=== PATIENT | male | born 1970 | race Caucasian/White ===

== ENCOUNTER 2017-10-16 16:17 | Inpatient (IN) ==
[2017-10-16] MEDS ORDERED: 0.9 % Sodium Chloride 1,000 ML IVC ONE (16:44)
--- NOTE | 2017-10-16 16:46 | Emergency Department Note ---
Disposition Clinical Impression: Abdominal pain, Hyperammonemia, Thrombocytopenia, Abnormal urinalysis, Elevated INR, History of hepatitis C, Liver failure Disposition: Admitted As Inpatient Referrals: NONE,PCP [Primary Care Provider] - Forms: ED Satisfaction Letter, Work/School Release General Adult HPI - General Chief complaint: ED Abdominal Pain Stated complaint: Enlarged gallbladder/spleen Time Seen by Provider: 10/16/17 16:36 Source: patient Limitations: no limitations - History of Present Illness HPI Narrative: 47-year-old male reports emergency department complaining of abdominal pain. The patient states he recently had pneumonia and had a follw up CT scan of the chest yesterday which reportedly was reviewed by his patient care coordinator, per the patient there was suggestion of a hepatic and/or splenic disease. The patient thinks he may have a gallbladder problem. He describes abdominal pain in the upper abdomen. The patient has had recurrent small amounts of blood in the stool, and occasional hematemesis but no hematemesis over the last few days. Minimal bright red blood per rectum this morning with formed stool/nonbloody otherwise. The patient denies any vomiting. No diarrhea. He states he has a history of hepatitis C. He has never had abdominal surgery or cirrhosis. The patient denies any chest pain he has had a cough but no glenn shortness breath. The patient's had no fever. There is no history of diabetes but the patient reports he "eats a lot of sugar" there is no history of leg swelling or pain or syncope. No coughing up blood. There is no history of anticoagulant therapy. Pain Scale: 6 - Related Data Home Medications Medication Instructions Recorded Confirmed Buprenorphine HCl [Subutex] 8 mg SL BID 10/26/16 10/16/17 Allergies Allergy/AdvReac Type Severity Reaction Status Date / Time No Known Allergies Allergy Verified 06/26/15 16:04 All systems ED: reviewed and negative except as stated. Past Medical History - Past Medical History Medical history: Reports: hepatitis, hypertension, other Psychiatric history: Reports: no psych history - Social History Smoking Status: Current every day smoker Smokeless Tobacco Status: No Alcohol use: Reports: none Drug use: Reports: none, other Physical Exam - General Limitations: no limitations General appearance: alert, in no apparent distress - Head Head exam: atraumatic, normocephalic, normal inspection - Eye Eye exam: Present: normal appearance, PERRL, EOMI. Absent: scleral icterus, conjunctival injection, miosis, mydriasis - ENT ENT exam: normal exam, normal oropharynx, mucous membranes moist - Neck Neck exam: Present: normal inspection, full ROM, trachea midline. Absent: tenderness - Chest Chest inspection: Present: symmetric chest wall rise. Absent: tenderness - Respiratory Respiratory exam: Present: normal lung sounds bilaterally. Absent: respiratory distress, accessory muscle use, prolonged expiratory phase - Cardiovascular Cardiovascular exam: Present: regular rate, normal rhythm, normal heart sounds - Abdominal Exam Abdominal exam: Present: soft, tenderness, normal bowel sounds, ascites. Absent : distention, guarding, rebound, rigidity, Rovsing's sign, tenderness at McBurney's Point, pulsatile mass Abdominal tenderness: Present: RUQ, LUQ, epigastrium, moderate - Extremities Exam Extremities exam: Present: normal inspection, full ROM, normal capillary refill. Absent: tenderness, pedal edema, joint swelling, calf tenderness - Expanded Lower Extremity Exam Neurovascular/Tendon exam: Present: normal capillary refill. Absent: motor deficit, sensory deficit, tendon deficit, extremity cold to touch, pallor - Back Exam Back exam: Present: normal inspection, full ROM. Absent: tenderness, CVA tenderness (R), CVA tenderness (L), vertebral tenderness - Neurological Exam Neurological exam: Present: alert, oriented X3, CN II-XII intact. Absent: motor sensory deficit - Psychiatric Psychiatric exam: Present: normal affect, normal mood - Skin Skin exam: Present: warm, dry, intact, normal color. Absent: rash, cyanosis, diaphoresis, erythema, mottled Course Vital Signs Temperature 98.0 F 10/16/17 16:28 Pulse Rate 83 10/16/17 16:28 Respiratory Rate 18 10/16/17 16:28 Blood Pressure 144/78 10/16/17 16:28 O2 Sat by Pulse Oximetry 97 10/16/17 16:28 Temperature 98.0 F 10/16/17 16:28 Pulse Rate 83 10/16/17 16:28 Respiratory Rate 18 10/16/17 16:28 Blood Pressure 144/78 10/16/17 16:28 O2 Sat by Pulse Oximetry 97 10/16/17 16:28 Oxygen Delivery Oxygen Delivery Room Air Medical Decision Making - MDM Narrative Medical decision making narrative: The patient has what appears to be ascites and splenomegaly with abnormal liver function tests suggestive of liver failure/cirrhosis. He does have a history of hepatitis C. Notably he has INR is 1.7 and his ammonia levels were over 100. Lactulose was ordered. CT scan revealed changes suggesting cholecystitis , the patient does not seem to have right upper abdominal pain, a right upper quadrant ultrasound was ordered and shows similar changes, , I discussed the case with Dr. Islas, we both feel the patient is more likely to have cirrhosis based on his abnormal liver function tests, ascites, splenomegaly, thrombocytopenia and history of hepatitis C versus acute cholecystitis. The patient was given Zosyn in the ED to cover abnormal urinalysis as well as intra- abdominal pathology. The patient is being admitted to the medical service, I discussed the case with the hospitalist on-call who has accepted the patient to their care. Surgery will act as transformation consultant and orders have been placed for consultation. The patient is agreeable to admission and is currently stable pending admission. - Lab Data Lab results reviewed: Yes I reviewed the patient's lab results. Result diagrams: 10/16/17 16:59 10/16/17 17:48 Lab Results 10/16/17 10/16/17 10/16/17 Range/Units 16:59 16:59 17:28 WBC 5.1 (4.3-11.1) K/mcL RBC 4.38 (4.19-5.50) M/mcL Hgb 13.4 (12.9-16.9) g/dL Hct 39.4 (37.5-50.1) % MCV 90.0 (83.0-100.0) fL MCH 30.6 (28.0-33.3) pg MCHC 34.0 (31.6-35.5) g/dL RDW 15.9 H (11.5-14.5) % Plt Count 66 L (140-400) K/mcL MPV TNP Immature Gran % 0.2 (0-4) % Seg Neutrophils % 39.0 % Lymphocytes % 49.7 % Monocytes % 7.2 % Eosinophils % 3.1 % Basophils % 0.8 % Neutrophils # 2.0 (1.6-8.9) K/mcL Lymphocytes # 2.5 (0.6-4.6) K/mcL Monocytes # 0.4 (0.0-1.3) K/mcL Eosinophils # 0.2 (0.0-0.6) K/mcL Basophils # 0.0 (0.0-0.2) K/mcL Immature Plt Fraction 9.3 H (1.1-6.1) % PT (9.4-12.1) Seconds INR APTT (26.0-36.0) Seconds Sodium Cancelled Potassium Cancelled Chloride Cancelled Carbon Dioxide Cancelled BUN Cancelled Creatinine Cancelled Est GFR ( Amer) Cancelled Est GFR (Non-Af Amer) Cancelled BUN/Creatinine Ratio Cancelled Glucose Cancelled Calculated Osmolality Cancelled Lactic Acid (0.5-2.2) mmol/L Calcium Cancelled Total Bilirubin Cancelled Direct Bilirubin Cancelled Indirect Bilirubin Cancelled AST Cancelled ALT Cancelled Alkaline Phosphatase Cancelled Ammonia (16-53) mcmol/L Troponin I < 0.03 (< 0.04) ng/mL C-Reactive Protein 11 H (Less than 10) mg/L Serum Total Protein Cancelled Albumin Cancelled Globulin Cancelled Albumin/Globulin Ratio Cancelled Lipase 17 (11-82) Units/L Urine Color Maya A (Yellow) Urine Clarity Cloudy A (Clear) Urine pH 5.5 (5.0-8.0) pH Units Ur Specific [place] 1.026 H (1.010-1.025) Urine Protein Trace (Neg-Trace) mg/dL Urine Glucose (UA) Normal (Normal) mg/dL Urine Ketones Trace H (Negative) mg/dL Urine Blood Negative (Negative) Urine Nitrite Positive A (Negative) Urine Bilirubin Moderate H (Negative) Urine Urobilinogen 2.0 H (Normal) mg/dL Ur Leukocyte Esterase Small H (Negative) Urine Microscopic RBC 5-15 H (0-3) per hpf Urine Microscopic WBC 0-3 (0-3) per hpf Ur Squamous Epith Cells None Seen (None-Few) per lpf Calcium Oxalate Crystal Present Urine Bacteria None Seen (None-Few) per hpf Hyaline Casts None Seen (None-Few) per lpf Ur Culture Indicated? YES A (NO) Acetaminophen < 10 L (10-20) mcg/mL Specimen Rejected 10/16/17 10/16/17 10/16/17 Range/Units 17:39 17:46 17:46 WBC (4.3-11.1) K/mcL RBC (4.19-5.50) M/mcL Hgb (12.9-16.9) g/dL Hct (37.5-50.1) % MCV (83.0-100.0) fL MCH (28.0-33.3) pg MCHC (31.6-35.5) g/dL RDW (11.5-14.5) % Plt Count (140-400) K/mcL MPV Immature Gran % (0-4) % Seg Neutrophils % % Lymphocytes % % Monocytes % % Eosinophils % % Basophils % % Neutrophils # (1.6-8.9) K/mcL Lymphocytes # (0.6-4.6) K/mcL Monocytes # (0.0-1.3) K/mcL Eosinophils # (0.0-0.6) K/mcL Basophils # (0.0-0.2) K/mcL Immature Plt Fraction (1.1-6.1) % PT 18.6 H (9.4-12.1) Seconds INR 1.7 APTT 37.0 H (26.0-36.0) Seconds Sodium Potassium Chloride Carbon Dioxide BUN Creatinine Est GFR ( Amer) Est GFR (Non-Af Amer) BUN/Creatinine Ratio Glucose Calculated Osmolality Lactic Acid 1.0 (0.5-2.2) mmol/L Calcium Total Bilirubin Direct Bilirubin Indirect Bilirubin AST ALT Alkaline Phosphatase Ammonia (16-53) mcmol/L Troponin I (< 0.04) ng/mL C-Reactive Protein (Less than 10) mg/L Serum Total Protein Albumin Globulin Albumin/Globulin Ratio Lipase (11-82) Units/L Urine Color (Yellow) Urine Clarity (Clear) Urine pH (5.0-8.0) pH Units Ur Specific [place] (1.010-1.025) Urine Protein (Neg-Trace) mg/dL Urine Glucose (UA) (Normal) mg/dL Urine Ketones (Negative) mg/dL Urine Blood (Negative) Urine Nitrite (Negative) Urine Bilirubin (Negative) Urine Urobilinogen (Normal) mg/dL Ur Leukocyte Esterase (Negative) Urine Microscopic RBC (0-3) per hpf Urine Microscopic WBC (0-3) per hpf Ur Squamous Epith Cells (None-Few) per lpf Calcium Oxalate Crystal Urine Bacteria (None-Few) per hpf Hyaline Casts (None-Few) per lpf Ur Culture Indicated? (NO) Acetaminophen (10-20) mcg/mL Specimen Rejected Hemolyzed 10/16/17 10/16/17 Range/Units 17:48 17:48 WBC (4.3-11.1) K/mcL RBC (4.19-5.50) M/mcL Hgb (12.9-16.9) g/dL Hct (37.5-50.1) % MCV (83.0-100.0) fL MCH (28.0-33.3) pg MCHC (31.6-35.5) g/dL RDW (11.5-14.5) % Plt Count (140-400) K/mcL MPV Immature Gran % (0-4) % Seg Neutrophils % % Lymphocytes % % Monocytes % % Eosinophils % % Basophils % % Neutrophils # (1.6-8.9) K/mcL Lymphocytes # (0.6-4.6) K/mcL Monocytes # (0.0-1.3) K/mcL Eosinophils # (0.0-0.6) K/mcL Basophils # (0.0-0.2) K/mcL Immature Plt Fraction (1.1-6.1) % PT (9.4-12.1) Seconds INR APTT (26.0-36.0) Seconds Sodium 138 Potassium 4.3 Chloride 110 H Carbon Dioxide 27 BUN 5 L Creatinine 0.48 L Est GFR ( Amer) > 60 Est GFR (Non-Af Amer) > 60 BUN/Creatinine Ratio 10 Glucose 98 Calculated Osmolality 283 Lactic Acid (0.5-2.2) mmol/L Calcium 8.0 L Total Bilirubin 2.9 H Direct Bilirubin 1.5 H Indirect Bilirubin 1.4 H AST 299 H ALT 146 H Alkaline Phosphatase 103 Ammonia 119 H (16-53) mcmol/L Troponin I (< 0.04) ng/mL C-Reactive Protein (Less than 10) mg/L Serum Total Protein 5.5 L Albumin 2.9 L Globulin 2.6 Albumin/Globulin Ratio 1.1 Lipase (11-82) Units/L Urine Color (Yellow) Urine Clarity (Clear) Urine pH (5.0-8.0) pH Units Ur Specific [place] (1.010-1.025) Urine Protein (Neg-Trace) mg/dL Urine Glucose (UA) (Normal) mg/dL Urine Ketones (Negative) mg/dL Urine Blood (Negative) Urine Nitrite (Negative) Urine Bilirubin (Negative) Urine Urobilinogen (Normal) mg/dL Ur Leukocyte Esterase (Negative) Urine Microscopic RBC (0-3) per hpf Urine Microscopic WBC (0-3) per hpf Ur Squamous Epith Cells (None-Few) per lpf Calcium Oxalate Crystal Urine Bacteria (None-Few) per hpf Hyaline Casts (None-Few) per lpf Ur Culture Indicated? (NO) Acetaminophen (10-20) mcg/mL Specimen Rejected - Radiology Data Radiology results reviewed: Yes I reviewed the patient's radiology results.
[2017-10-16 17:16] LABS: Hemoglobin 13.4 g/dL (12.9-16.9); Immature Granulocytes % 0.2 % (0-4); Red Cell Distribution Width 15.9 % (11.5-14.5)
[2017-10-16 17:17] LABS: Basophils % 0.8 %; Eosinophils # 0.2 K/mcL (0.0-0.6); Eosinophils % 3.1 %; Hematocrit 39.4 % (37.5-50.1); Immature Platelets 9.3 % (1.1-6.1); Lymphocytes % 49.7 %; Mean Corpuscular Hemoglobin 30.6 pg (28.0-33.3); Monocytes # 0.4 K/mcL (0.0-1.3); Monocytes % 7.2 %; Red Blood Count 4.38 M/mcL (4.19-5.50)
[2017-10-16 17:22] LABS: Lymphocytes # 2.5 K/mcL (0.6-4.6); Platelet Count 66 K/mcL (140-400)
[2017-10-16 17:37] LABS: Bilirubin,Urine Moderate (Negative); Blood,Urine Negative (Negative); Clarity,Urine Cloudy (Clear); Glucose,Urine (UA) Normal (Normal); Ketones,Urine Trace mg/dL (Negative); Leukocyte Esterase,Urine Small (Negative); Nitrite,Urine Positive (Negative); PH,Urine 5.5 pH Units (5.0-8.0); Protein,Urine Trace mg/dL (Neg-Trace); Specific Gravity,Urine 1.026 (1.010-1.025)
[2017-10-16 17:39] LABS: Troponin I < 0.03 ng/mL (< 0.04)
[2017-10-16 17:40] LABS: Acetaminophen < 10 mcg/mL (10-20)
[2017-10-16 17:48] LABS: Bacteria,Urine None Seen per hpf (None-Few); Hyaline Casts,Urine None Seen per lpf (None-Few); Squamous Epithelial Cell,Urine None Seen per lpf (None-Few); WBC,Urine 0-3 per hpf (0-3)
[2017-10-16 17:51] LABS: C-Reactive Protein 11 mg/L (Less than 10); Lipase 17 Units/L (11-82)
[2017-10-16 17:52] LABS: Color,Urine Amber (Yellow)
[2017-10-16 18:17] LABS: Alanine Aminotransferase 146 Units/L (7-52); Albumin 2.9 g/dL (3.5-5.7); Albumin/Globulin Ratio 1.1 (1.1-2.2); Alkaline Phosphatase 103 Units/L (34-104); Aspartate Amino Transferase 299 Units/L (13-39); BUN/Creatinine Ratio 10 (6-26); Bilirubin,Direct 1.5 mg/dL (0.0-0.2); Bilirubin,Indirect 1.4 mg/dL (0.0-1.2); Bilirubin,Total 2.9 mg/dL (0.3-1.0); Blood Urea Nitrogen 5 mg/dL (6-20); Carbon Dioxide 27 mEq/L (23-29); Chloride 110 mEq/L (98-107); Globulin 2.6 g/dL (2.4-3.5); Glucose 98 mg/dL (70-105); Osmolality,Calculated 283 (280-300); Potassium 4.3 mEq/L (3.5-5.1); Sodium 138 mEq/L (136-145); Total Protein 5.5 g/dL (6.4-8.9); eGFR For African Americans > 60 (> 60); eGFR For Non-African Americans > 60 (> 60)
[2017-10-16 18:20] LABS: INR 1.7; Prothrombin Time 18.6 Seconds (9.4-12.1)
[2017-10-16 18:20] LABS: Calcium Oxalate Crystals,Urine Present
[2017-10-16] MEDS ORDERED: Lactulose Oral Soln 20 GM/30 ML UDC PO ONE (18:20)
[2017-10-16] MEDS ORDERED: Piperacillin/Tazobactam 3.375 GM in 0.9 % Sodium Chloride Mini Bag 100 ML IVPB ONE (19:16)
--- NOTE | 2017-10-16 21:13 | Internal Med History&Physical ---
Date of Encounter: 10/16/17 Time of Encounter: 21:11 Assessment and Plan (1) Acute abdominal pain Current visit: Yes Status: Acute 47 y M with history of hepatitis C with abdominal pain and early satiety, with CT and ultrasound concerning for acute cholecystitis and splenomegaly. Patient's description of abdominal pain consistent with cirrhosis and concomitant splenomegaly with associated symptoms of fatigue, pleuritic pain, pain referred to left shoulder, and early satiety. However acute Increase in abdominal pain and positive De La O sign seen on exam and imaging finding, concerning for possible acute cholecystitis. WBC however 5.1, mild bilirubin elevation. HIDA scan pending Recommend consultation to surgery Patient will remain NPO from midnight Hold IV fluids due to comorbidities Zosyn in ED Antibiotic coverage (2) History of hepatitis C Current visit: Yes Status: Chronic Patient's nonspecific symptoms such as anorexia and fatigue, consistent with history of hepatitis C Unfortunately has been lost to follow-up, and will require evaluation Patient's labs consistent with presentation of cirrhosis including. Elevated LFTs and AST/ALT ratio Hepatitis serologies pending Child Boateng score: Class B MELD: 16 Patient may need diagnostic paracentesis, will defer decision to GI Consult to GI (3) Varices, esophageal Current visit: Yes Status: Acute Patient endorses bloody emesis and bloody bowel movements, concerning for esophageal varices GI On consult for, appreciate recs for evaluation and management Will begin with Protonix twice a day Ceftriaxone, for risk reduction of SBP 2/2 cirrhosis Qualifiers: Esophageal varices type: secondary Esophageal varices bleeding: with bleeding Qualified Code(s): I85.11 - Secondary esophageal varices with bleeding (4) Hyperammonemia Current visit: Yes Status: Acute Hyperammonemia, likely secondary of possible subclinical hepatic encephalopathy Replete electrolytes when necessary Patient received lactulose in ED Continue lactulose, recommend titration of dosing to achieve 2-3 soft stools per day GI on consult (5) Thrombocytopenia Current visit: Yes Status: Acute Consistent with splenomegaly with MPV 13.4 per phone discussion with lab, not recorded in EMR, likely secondary to hypersplenism seen in patients with cirrhosis. Recommend continued correlation with clinical bleeding. Hemoglobin stable Serial CBC Type and Screen GI on consult, as above for possible EGD (6) Elevated INR Current visit: Yes Status: Acute Consistent with cirrhosis. See plan above (7) History of substance use disorder Current visit: Yes Status: Acute OARRS reviewed on admission and appropriate. Continue home medications (8) DVT prophylaxis Current visit: Yes Status: Acute EPCD due to thrombocytopenia, and pending eval for bleeding. Internal Medicine - H&P: HPI Chief complaint: Abdominal pain Admitted From: Home History of present illness: Mr. Mitchell is a 47 year old male with Hepatitis C diagnosed 3 years ago and lost to follow up and substance abuse disorder in remission presenting to ED with chief complaint of intermittent "burning" abdominal pain for 1 month, which has progressed to constant burning abdominal pain for the past 2 weeks. Patient endorses abdominal pain, with a sense of fullness that originated in the periumbilical region and gradually progressed to lower abdominal region. Abdominal pain refers to left shoulder, which patient likens to someone striking "with lightening". Associated symptoms include early satiety, anorexia , fatigue, and pleuritic pain, and urinary retention. Patient endorses nausea and intermittent vomiting 1 week. States emesis contained bright red blood. Patient also complains of bright red blood with cough 1 month. Endorses hematochezia. He was lost to follow-up for Hepatitis C, partially due to apprehension of use of opioids during hospitalization. Strongly emphasizes he prefers use of non-opioids while hospitalized. He is a smoker. Denies alcohol or current illicit drug use. Discontinued illicit drug use approximately 2 years ago. Past Med Surg Social Fam HX - Past Medical History Medical history: hepatitis, hypertension, other Psychiatric history: no psych history - Social History Smoking Status: Current every day smoker Smokeless Tobacco Status: No Alcohol use: none Drug use: none, other Internal Medicine - H&P: Meds Buprenorphine HCl [Subutex] 8 mg SL BID 10/26/16 [History] 3 Allergy/AdvReac Type Severity Reaction Status Date / Time No Known Allergies Allergy Verified 06/26/15 16:04 All Systems PM: A 10-system review of systems was performed and is negative for pertinent findings except as documented above in the HPI. - Constitutional Constitutional: as per HPI - EENT Nose, mouth and throat: as per HPI - Cardiovascular Cardiovascular ROS IM: as per HPI - Respiratory Respiratory: as per HPI - Gastrointestinal Gastrointestinal: as per HPI - Genitourinary Genitourinary ROS male: as per HPI - Neurological Additional comments: Burning and tingling sensation in legs - Constitutional Vitals: Temp Pulse Resp BP Pulse Ox 98.0 F 83 18 144/78 97 10/16/17 16:28 10/16/17 16:28 10/16/17 16:28 10/16/17 16:28 10/16/17 16:28 General appearance: Present: cooperative, A&O X 3, no acute distress, answers questions appropriately - Head Head exam: Present: atraumatic, normocephalic - Eye Eye exam: Present: EOMI, PERRL, scleral icterus - Respiratory Respiratory exam: Present: CTAB. Absent: accessory muscle use, chest wall tenderness, respiratory distress - GI/Abdominal Additional comments: Nondistended, soft, normoactive bowel sounds. Inspiratory pause during palpation of the right upper quadrant. Tenderness in periumbilical and left upper quadrant on palpation. Splenomegaly appreciated. - Psychiatric Psychiatric exam: Present: normal mood Additional comments: No asterixis. Rapid alternating movement slow, regular rhythm. - Skin Additional comments: No spider angiomata seen on face. No palmar erythema bilaterally. Internal Med - H&P Results - Labs CBC & Chem 7: 10/16/17 16:59 10/16/17 17:48 Labs: Short CBC 10/16/17 Range/Units 16:59 WBC 5.1 (4.3-11.1) K/mcL Hgb 13.4 (12.9-16.9) g/dL Hct 39.4 (37.5-50.1) % Plt Count 66 L (140-400) K/mcL Neutrophils # 2.0 (1.6-8.9) K/mcL BMP 10/16/17 10/16/17 16:59 17:48 Sodium Cancelled 138 Potassium Cancelled 4.3 Chloride Cancelled 110 H Carbon Dioxide Cancelled 27 BUN Cancelled 5 L Creatinine Cancelled 0.48 L Glucose Cancelled 98 Calcium Cancelled 8.0 L Cardiac Enzymes 10/16/17 Range/Units 16:59 Troponin I < 0.03 (< 0.04) ng/mL Liver Function 10/16/17 10/16/17 Range/Units 16:59 17:48 Total Bilirubin Cancelled 2.9 H Direct Bilirubin Cancelled 1.5 H AST Cancelled 299 H ALT Cancelled 146 H Alkaline Phosphatase Cancelled 103 Albumin Cancelled 2.9 L Urine 10/16/17 Range/Units 17:28 Urine Color Maya A (Yellow) Urine Clarity Cloudy A (Clear) Urine pH 5.5 (5.0-8.0) pH Units Ur Specific [place] 1.026 H (1.010-1.025) Urine Protein Trace (Neg-Trace) mg/dL Urine Glucose (UA) Normal (Normal) mg/dL - EKG Data EKG comments: 10/16/17 ED EKG. Reviewed with Kingsley FIELDS Sinus rhythm. Vent rate 76. VA 144 ms. QRS 121 ms. QT/QTC 415/445 ms. RBBB. - Impressions ITS Impressions Radiology reports below reviewed with MD Kingsley CT OF THE ABDOMEN AND PELVIS WITH CONTRAST 10/16/2017 6:43 pm TECHNIQUE: CT of the abdomen and pelvis was performed with the administration of intravenous contrast. Multiplanar reformatted images are provided for review. Dose modulation, iterative reconstruction, and/or weight based adjustment of the mA/kV was utilized to reduce the radiation dose to as low as reasonably achievable. COMPARISON: None. HISTORY: ORDERING SYSTEM PROVIDED HISTORY: Abd pain, recent CT suggestive of liver/spleen dz 75 ml of ISOVUE 370 Acute abdominal pain FINDINGS: Lower Chest: Visualized portions of the lungs are clear. Cardiac and posterior mediastinal structures visualized are unremarkable. Organs: Suboptimal evaluation without IV contrast. Mild to moderate intra and extrahepatic bile duct dilatation, common duct measuring 14 mm diameter with no definite stone or mass lesion evident. Diffuse gallbladder wall thickening and trace pericholecystic fluid is seen. Small amount of fluid is seen in the pericolic gutter. Spleen is enlarged, craniocaudal length 20 cm. No discrete splenic lesion is evident. To the extent of visualization without the advantage of IV contrast, the right kidney, adrenal glands and pancreas appear unremarkable. Nonspecific calcification at superior pole left kidney measures 10 x 12 mm. There is no hydronephrosis. GI/Bowel: Unremarkable appearance of the unopacified bowel. No inflammatory changes evident. No obstruction is seen. The appendix is visualized right lower quadrant. Pelvis: Unremarkable appearance of the prostate gland and seminal vesicles. Urinary bladder is decompressed. Small volume pelvic ascites is noted. Peritoneum/Retroperitoneum: Calcific atherosclerotic disease aorta. No aneurysm. Unremarkable appearance of the IVC. No adenopathy. Small volume ascites. Bones/Soft Tissues: Unremarkable appearance. Mild degenerative changes lumbar spine. CT/CT abd pelvis w iv no oral IMPRESSION: 1. Findings suggesting acute cholecystitis. 2. Nonspecific abdominal and pelvic ascites may be reactive. 3. Splenomegaly. D/ / Checo Bennett / Checo Bennett Interpreting Provider: Checo Bennett Chest X-Ray 10/16/17 16:53 IMPRESSION: No acute cardiopulmonary disease. D/ / Javier Ramos MD / Javier Ramos MD Interpreting Provider: Javier Ramos MD T UPPER QUADRANT ULTRASOUND 10/16/2017 8:02 pm COMPARISON: CT abdomen 10/16/2017 6:43 p.m. HISTORY: ORDERING SYSTEM PROVIDED HISTORY: Abnormal CT scan suggestive of cholecystitis FINDINGS: LIVER: The liver demonstrates normal echogenicity without evidence of intrahepatic biliary ductal dilatation. BILIARY SYSTEM: No gallstones are evident. Diffuse gallbladder wall thickening is seen. The Negative sonographic De La O's sign. Common bile duct is within normal limits measuring 14 mm. RIGHT KIDNEY: The right kidney is grossly unremarkable without evidence of hydronephrosis. 11.6 cm PANCREAS: Visualized portions of the pancreas are unremarkable, though predominantly obscured by overlying bowel gas. OTHER: No evidence of right upper quadrant ascites. This area is poorly visualized sonographically because of overlying bowel gas. US/US abdomen limited IMPRESSION: Nonspecific findings of diffuse gallbladder wall thickening which can be seen with cholecystitis. HIDA scan correlation may be useful. Nonspecific common duct dilatation without choledocholithiasis evident sonographically. Correlate with liver function tests. ERCP or MRCP may be indicated. D/ / Checo Bennett / Checo Bennett Interpreting Provider: Checo Bennett
[2017-10-16] MEDS ORDERED: Naloxone 0.4 MG/ML INJ IVP PRN (22:05)
[2017-10-16] MEDS ORDERED: *HR* Promethazine 25 MG/ML VIAL IVP PRN (22:05)
[2017-10-16] MEDS ORDERED: 0.9 % Sodium Chloride 1,000 ML IVC SCH (22:15)
[2017-10-16] MEDS ORDERED: Capsaicin 0.025% 60 GM TUBE TP PRN (22:16)
--- NOTE | 2017-10-16 23:04 | Event Note ---
Date of Encounter: 10/17/17 Time of Encounter: 22:58 Patient was seen and examined. Agree with the H&P as written by the Resident Physician. Recently treated for pneumonia and had a CT chest has a follow-up which I do not have the results of and was told that he needed to come to the hospital for possible cholecystitis. Patient with multiple abdominal symptoms. Also reports hematemesis on occasions. Also reports hematochezia. CT abdomen and pelvis done here showed findings suggestive of acute cholecystitis as well as abdominal and pelvic ascites as well as splenomegaly. This was followed by a right upper quadrant ultrasound with nonspecific findings of diffuse gallbladder wall thickening which can be seen with cholecystitis. Surgery were contacted from the ED and did not think that this was acute cholecystitis for now. The patient has abnormal liver function tests which she has had in the past as well. Ammonia level was also elevated at 119 for which she was given lactulose in the ED. He has a history of hepatitis C for which he is not following up with anybody. The patient also has a UTI and was given Zosyn in the ED. We will admit the patient and make him nothing by mouth. Consult GI. Consult surgery Hepatitis panel May need diagnostic paracentesis. We will leave up to GI HIDA scan in the morning Lactulose started school of 3-4 with goal of bowel movements a day. Ceftriaxone for abx. IV PPI. H/H stable.
[2017-10-16] MEDS ORDERED: Ibuprofen 600 MG TABLET PO PRN (23:35)
[2017-10-16] MEDS: *HR* Buprenorphine HCl 8 MG TAB.SUBL SL SCH (23:54)
[2017-10-17 01:30] LABS: INR 1.8; Prothrombin Time 19.2 Seconds (9.4-12.1)
[2017-10-17 01:33] LABS: Activated Partial Thrombo Time 39.5 Seconds (26.0-36.0)
[2017-10-17 01:48] LABS: Alanine Aminotransferase 136 Units/L (7-52); Albumin 2.6 g/dL (3.5-5.7); Albumin/Globulin Ratio 1.1 (1.1-2.2); Alkaline Phosphatase 91 Units/L (34-104); Aspartate Amino Transferase 277 Units/L (13-39); BUN/Creatinine Ratio 9 (6-26); Bilirubin,Total 3.1 mg/dL (0.3-1.0); Blood Urea Nitrogen 5 mg/dL (6-20); Calcium 7.9 mg/dL (8.6-10.3); Carbon Dioxide 27 mEq/L (23-29); Chloride 111 mEq/L (98-107); Globulin 2.4 g/dL (2.4-3.5); Glucose 109 mg/dL (70-105); Magnesium 1.7 mg/dL (1.6-2.6); Osmolality,Calculated 288 (280-300); Phosphorous 3.6 mg/dL (2.7-4.5); Sodium 140 mEq/L (136-145); eGFR For African Americans > 60 (> 60); eGFR For Non-African Americans > 60 (> 60)
[2017-10-17 01:49] LABS: Albumin 2.6 g/dL (3.5-5.7); Albumin/Globulin Ratio 1.1 (1.1-2.2); Bilirubin,Direct 1.7 mg/dL (0.0-0.2); Bilirubin,Indirect 1.4 mg/dL (0.0-1.2); Bilirubin,Total 3.1 mg/dL (0.3-1.0); Globulin 2.4 g/dL (2.4-3.5)
[2017-10-17 02:30] LABS: Hepatitis A Antibody IgM Nonreactive (Nonreactive); Hepatitis B Core IgM Nonreactive (Nonreactive); Hepatitis B Surface Antigen Nonreactive (Nonreactive)
[2017-10-17 02:39] LABS: Hepatitis C Virus Antibody Reactive (Nonreactive)
[2017-10-17] MEDS: Pantoprazole 40 MG VIAL IVP SCH ×2 (05:09→16:43)
[2017-10-17 07:07] LABS: Amphetamine Screen,Urine Negative ng/mL (Cutoff=1000); Barbiturate Screen,Urine Negative ng/mL (Cutoff=200); Benzodiazepines Screen,Urine Positive ng/mL (Cutoff=200); Cannabinoid Screen,Urine Negative ng/mL (Cutoff = 50); Cocaine Screen,Urine Negative ng/mL (Cutoff= 300); Opiate Screen,Urine Negative ng/mL (Cutoff=300); Phencyclidine Screen,Urine Negative ng/mL (Cutoff=25)
--- NOTE | 2017-10-17 08:35 | Gastroenterology Consult Note ---
<Christian Mcleod - Last Filed: 10/17/17 17:18> Date of Encounter: 10/17/17 Time of Encounter: 08:32 - Assessment and plan (1) GI bleed Status: Acute Assessment and plan: Patient with hematemesis and hematochezia HGB stable, vitals stable Vitamin K given due to INR 1.8 Continue Protonix BID EGD today revealed Grade 1 esophageal varices and portal hypertensive gastropathy Clear liquid diet, NPO after midnight Anticipate colonoscopy tomorrow Qualifiers: GI bleed type/associated pathology: unspecified gastrointestinal hemorrhage type Qualified Code(s): K92.2 - Gastrointestinal hemorrhage, unspecified (2) Cholecystitis Status: Acute Assessment and plan: CT Abdomen/Pelvis revealed findings suggesting acute cholecystitis, nonspecific abdominal and pelvic ascites may be reactive, and splenomegaly. Abdomen Ultrasound revealed nonspecific findings of diffuse gallbladder wall thickening which can be seen with cholecystitis. Nonspecific common duct dilatation without choledocholithiasis evident sonographically. Correlate with liver function tests. HIDA scan was nondiagnostic, consider delayed imaging if patient is able to tolerate. Bilirubin, LFTs elevated, positive De La O's sign Surgery following Continue Ceftriaxone. Abdominal paracentesis pending to rule out SBP (3) Thrombocytopenia Status: Acute Assessment and plan: Consistent with splenomegaly seen on CT imaging Continue to monitor Transfuse platelets if platelet count drops below 50 given active GI bleed (4) Hyperammonemia Status: Acute Assessment and plan: Ammonia level elevated at 119 Patient is A&O x3 He was started on Lactulose in the ED. Goal of 3-4 bowel movements a day. (5) History of hepatitis C Status: Chronic Assessment and plan: History of hepatitis C related to previous IVDU history Not currently on treatment Fibrosis Stage: 4-6 FIB-4 score 20.16 points ( score >3.25 are 97% specific to rule in advanced fibrosis) (6) History of substance use disorder Status: Chronic Assessment and plan: Patient is now on Suboxone - Time Spent With Patient Total time spent is greater than 50% in coordination of care (as documented) at patient's floor/unit and/or counseling patient: GI History of Present Illness - Data of Consult Patient: new to practice Consult date: 10/16/17 Requesting Physician: Anthony Jones MD - Consult Narrative Reason for consult: GI bleed, h/o cirrhosis and Hep C History of present illness: Mr. Mitchell is a 47 year old male with a PMH of GERD, Hepatitis C, and current Suboxone use who presented c/o intermittent burning diffuse abdominal pain for 1 month gradually progressing to constant lower abdominal pain for the past 2 weeks. Patient admits associated nausea, vomiting, hematemesis with blood streaks in emesis and hematochezia. CT abdomen and pelvis revealed mild to moderate intra and extrahepatic bile duct dilatation, common duct measuring 14 mm diameter with no definite stone or mass lesion evident, diffuse gallbladder wall thickening and trace pericholecystic fluid, and splenomegaly. This was followed by a right upper quadrant ultrasound with nonspecific findings of diffuse gallbladder wall thickening which can be seen with cholecystitis and negative sonographic De La O's sign. HIDA scan was non-diagnostic. Colonoscopy: Denies EGD: Denies Past Med Surg Social Fam HX - Past Medical History Medical history: hepatitis, hypertension, other Psychiatric history: no psych history - Past Surgical History Surgical History: no surgical history - Social History Smoking Status: Current every day smoker Smokeless Tobacco Status: No Alcohol use: none Drug use: none, other Occupational status: employed Current living situation: Home Activity Level: Independent ambulation - Family History Brother Name: Edilson Mitchell Age: 44 Living Status: Still Living Hx Family Cardiac Disorders: Yes (Heart cath done,results pending) Father Hx Family Cancer: Yes (Lung) - Gastrointestinal Gastrointestinal: Present: abdominal pain, change in bowel habits, hematemesis, hematochezia, nausea, vomiting. Absent: constipation, diarrhea, heartburn, melena - Constitutional Constitutional: anorexia, fatigue, no weight gain, no weight loss - EENT Nose, mouth and throat: Absent: dysphagia, sore throat - Cardiovascular Cardiovascular ROS: Absent: chest pain, irregular heart rhythm, palpitations - Respiratory Respiratory IM: Absent: cough, dyspnea - Genitourinary Genitourinary: Absent: change in color, Urinary frequency - Neurological ROS Neurological GI: Present: weakness. Absent: confusion, dizziness, headache( s) - Hematologic/Lymphatic Hematologic/Lymphatic pediatric: Present: as per HPI. Absent: easy bleeding - Musculoskeletal Musculoskeletal ROS GI: Present: back pain. Absent: joint swelling - Integumentary Integumentary GI: Present: jaundice. Absent: pruritis, rash - Psychiatric ROS Psychiatric GI: Absent: anxiety, depression - Endocrine Endocrine IM: Present: fatigue. Absent: cold intolerance, heat intolerance - Constitutional Vitals: Temp Pulse Resp BP Pulse Ox 98.2 F 70 18 136/66 97 10/17/17 08:19 10/17/17 08:19 10/17/17 08:19 10/17/17 08:19 10/17/17 08:19 General appearance: Present: cooperative, A&O X 3, no acute distress, obese, answers questions appropriately - Head Head exam: Present: atraumatic, normocephalic - Eye Eye exam: Present: normal appearance, scleral icterus. Absent: sclera anicteric - ENT ENT exam: Present: mucous membranes dry, normal oropharynx - Neck Neck exam general surgery: Present: normal inspection, trachea midline - Respiratory Respiratory exam: Present: CTAB - Cardiovascular Cardiovascular exam: Present: RRR, +S1, +S2 - GI/Abdominal GI/Abdominal exam: Present: normal bowel sounds, soft, splenomegaly, tenderness , no peritoneal signs. Absent: distended, guarding - Expanded GI/Abdominal Exam GI/Abdominal exam expanded: Present: De La O's sign - Rectal Rectal exam: Present: deferred - Extremities Exam Extremities exam: Present: warm. Absent: pedal edema - Neurological Exam Neurological exam: Present: oriented X3, no focal deficits - Psychiatric Psychiatric exam: Present: normal affect, normal mood - Skin Skin exam: Present: dry, intact, warm. Absent: normal color (jaundice) Results - Labs CBC & Chem 7: 10/17/17 08:57 10/17/17 00:58 Labs: Last Result Calcium 7.9 mg/dL (8.6-10.3) L 10/17/17 00:58 Troponin I < 0.03 ng/mL (< 0.04) 10/16/17 16:59 C-Reactive Protein 11 mg/L (Less than 10) H 10/16/17 16:59 Urine Opiates Screen Negative ng/mL (Qigxnw=515) 10/17/17 05:36 Entire Visit Hgb 13.4 g/dL (12.9-16.9) 10/16/17 16:59 Hct 39.4 % (37.5-50.1) 10/16/17 16:59 PT 19.2 Seconds (9.4-12.1) H 10/17/17 00:58 Total Bilirubin 3.1 mg/dL (0.3-1.0) H 10/17/17 00:58 AST 278 Units/L (13-39) H 10/17/17 00:58 ALT 138 Units/L (7-52) H 10/17/17 00:58 Ammonia 119 mcmol/L (16-53) H 10/16/17 17:48 Lipase 17 Units/L (11-82) 10/16/17 16:59 Acetaminophen < 10 mcg/mL (10-20) L 10/16/17 16:59 - ABG ABG results: PT/INR, D-dimer PT 19.2 Seconds (9.4-12.1) H 10/17/17 00:58 - Impressions ITS Impressions Abdomen/Pelvis CT 10/16/17 16:52 IMPRESSION: 1. Findings suggesting acute cholecystitis. 2. Nonspecific abdominal and pelvic ascites may be reactive. 3. Splenomegaly. D/ / Checo Bennett / Checo Bennett Interpreting Provider: Checo Bennett Chest X-Ray 10/16/17 16:53 IMPRESSION: No acute cardiopulmonary disease. D/ / Javier Ramos MD / Javier Ramos MD Interpreting Provider: Javier Ramos MD Abdomen Ultrasound 10/16/17 19:17 IMPRESSION: Nonspecific findings of diffuse gallbladder wall thickening which can be seen with cholecystitis. HIDA scan correlation may be useful. Nonspecific common duct dilatation without choledocholithiasis evident sonographically. Correlate with liver function tests. ERCP or MRCP may be indicated. D/ / Checo Bennett / Checo Bennett Interpreting Provider: Checo Bennett Bile Acid Absorption NM 10/17/17 07:32 IMPRESSION: Nondiagnostic HIDA scan. RECOMMENDATIONS: Consider delayed imaging if patient is able to tolerate. D/ / Danilo Hickman MD / Danilo Hickman MD Interpreting Provider: Danilo Hickman MD Consult Discharge Plan - Plan Instructions: Acute Abdominal Pain (DC) Referrals: Naveed López MD [Partnered Physician] - 10/24/17 2:45 pm Prescriptions: Lactulose 20 gm PO BID #60 udc Propranolol [Inderal] 20 mg PO BID #60 tablet <Yong Garcia - Last Filed: 11/05/17 07:37> Date of Encounter: 11/05/17 - Time Spent With Patient Total time spent is greater than 50% in coordination of care (as documented) at patient's floor/unit and/or counseling patient: GI History of Present Illness - Data of Consult Requesting Physician: Anthony Jones MD - Consult Narrative History of present illness: Mr. Mitchell is a 47 year old male - Constitutional Vitals: Temp Pulse Resp BP Pulse Ox 98.3 F 56 16 104/61 98 10/19/17 10:46 10/19/17 10:46 10/19/17 10:46 10/19/17 10:46 10/19/17 10:46 Results - Labs CBC & Chem 7: 10/19/17 04:41 10/19/17 04:41 Labs: Last Result Calcium 7.9 mg/dL (8.6-10.3) L 10/19/17 04:41 Troponin I < 0.03 ng/mL (< 0.04) 10/16/17 16:59 C-Reactive Protein 11 mg/L (Less than 10) H 10/16/17 16:59 Urine Opiates Screen Negative ng/mL (Vuwkxm=864) 10/17/17 05:36 HCV RNA (PCR) IUs/ml 240,000 IU/mL 10/17/17 00:58 HCV RNA PCR log IUs/ml 5.4 log IU 10/17/17 00:58 HCV RNA (PCR) Interp DETECTED (Not Detected) A 10/17/17 00:58 Entire Visit Hgb 12.1 g/dL (12.9-16.9) L 10/19/17 04:41 Hct 36.8 % (37.5-50.1) L 10/19/17 04:41 PT 18.2 Seconds (9.4-12.1) H 10/18/17 05:13 Total Bilirubin 4.9 mg/dL (0.3-1.0) H 10/18/17 05:13 AST 262 Units/L (13-39) H 10/18/17 05:13 ALT 136 Units/L (7-52) H 10/18/17 05:13 Ammonia 119 mcmol/L (16-53) H 10/16/17 17:48 Lipase 17 Units/L (11-82) 10/16/17 16:59 Acetaminophen < 10 mcg/mL (10-20) L 10/16/17 16:59 - ABG ABG results: PT/INR, D-dimer PT 18.2 Seconds (9.4-12.1) H 10/18/17 05:13 - Attending Attestation Procedure commiserate is a 47-year-old male comes in with combination of melena and hematemesis and hematochezia undergoing upper endoscopy today and colonoscopy tomorrow the differential diagnosis is quite wide and make further recommendations after endoscopy the risks and benefits were discussed with him I examined this patient and my medical decision-making was reviewed with the Resident Physician. I agree with the documented findings, disposition and treatment plan as described except to the extent set forth below.
--- NOTE | 2017-10-17 09:15 | General Surgery Consult Note ---
<Lauren Ramírez - Last Filed: 10/17/17 09:12> Date of Encounter: 10/17/17 Time of Encounter: 08:00 Assessment and Plan (1) Acute abdominal pain Current Visit: Yes Status: Acute Labs show positive hepatitis C antibodies, abnormal LFTs, but no leukocytosis and no fever. WBC is 5.1. CT of the abdomen and pelvis showed mild to moderate intra and extrahepatic bile duct dilatation, common duct measuring 14 mm diameter with no definite stone or mass lesion evident. Diffuse gallbladder wall thickening and trace pericholecystic fluid is seen. Splenomegaly. Ultrasound the gallbladder showed No gallstones are evident. Diffuse gallbladder wall thickening is seen. Negative sonographic De La O's sign. Patient is afebrile and appears in no acute distress. Plan: no surgical intervention at this time. Recommend HIDA scan GI consulted per primary team continue to monitor the patient closely. (2) History of hepatitis C Current Visit: Yes Status: Chronic History of hepatitis C likely secondary to previous substance abuse disorder. Patient states that he has been clean for the past 3 years. Labs shows elevated LFTs. Management per primary team. History of Present Illness Reason for consult: other (concern for acute cholecystitis) History of present illness: Mr. Mitchell is a 47 year old male with Hepatitis C diagnosed 3 years ago and substance abuse disorder in remission for the past 3 years who presented to ED with chief complaint of intermittent "burning" abdominal pain for 1 month, which has progressed to constant burning abdominal pain for the past 2 weeks. Patient admits associated nausea and intermittent vomiting 1 week. Patient states that he abdominal pain feels similar to his previous "heartburns." He admits subjective fever. He denies any hematemesis. However, patient admits he has blood in his stool for the past 3 months. He denies any history of colonoscopy. Evaluation the emergency department showed positive hepatitis C antibodies, abnormal LFTs, but no leukocytosis and no fever. CT of the abdomen and pelvis showed mild to moderate intra and extrahepatic bile duct dilatation, common duct measuring 14 mm diameter with no definite stone or mass lesion evident. Diffuse gallbladder wall thickening and trace pericholecystic fluid is seen. Splenomegaly. Ultrasound the gallbladder showed No gallstones are evident. Diffuse gallbladder wall thickening is seen. Negative sonographic De La O's sign. Surgery was consulted for evaluation of acute cholecystitis. She denies any surgical history. Past Med Surg Social Fam HX - Past Medical History Medical history: hepatitis, hypertension, other Psychiatric history: no psych history - Past Surgical History Surgical History: no surgical history - Social History Smoking Status: Current every day smoker Smokeless Tobacco Status: No Alcohol use: none Drug use: none, other - Family History Brother Name: Edilson Mitchell Age: 44 Living Status: Still Living Hx Family Cardiac Disorders: Yes (Heart cath done,results pending) Medications and Allergies Buprenorphine HCl [Subutex] 8 mg SL BID 10/26/16 [History] 3 Allergy/AdvReac Type Severity Reaction Status Date / Time No Known Allergies Allergy Verified 06/26/15 16:04 Review of Systems All systems PM: The remainder of the systems were reviewed and are negative - Constitutional as per HPI General Surgery Exam Initial Vital Signs Temp Pulse Resp BP Pulse Ox 98.0 F 83 18 144/78 97 10/16/17 16:28 10/16/17 16:28 10/16/17 16:28 10/16/17 16:28 10/16/17 16:28 - General physical appearance well developed, well nourished, no distress. negative: jaundice - Eyes PERRL, normal ocular movement - ENT normal mucosa - Neck trachea midline - Respiratory normal expansion, normal respiratory effort, clear to auscultation - Cardiovascular Cardiovascular exam: Present: RRR, no murmurs/rubs/gallops. Absent: tachycardia - Abdomen Abdomen general surgery: Present: bowel sounds present (Bowel sounds present in all 4 quadrants), soft, tender (Minimal tenderness to palpation in the epigastric region.Negative De La O's sign on my exam.). Absent: distended, guarding, rebound, rigid Abdominal Tenderness: Present: epigastic Hernia: Present: none - Integumentary Integumentary general surgery: Present: warm and dry, no abnormal pigmentation - Neurologic Present: CN 2-12 grossly intact - Psychiatric Psychiatric general surgery: Present: appropriate, oriented to person, oriented to place, oriented to time Exam Initial Vital Signs Temp Pulse Resp BP Pulse Ox 98.0 F 83 18 144/78 97 10/16/17 16:28 10/16/17 16:28 10/16/17 16:28 10/16/17 16:28 10/16/17 16:28 Results - Labs 10/16/17 16:59 10/17/17 00:58 Abnormal lab results RDW 15.9 % (11.5-14.5) H 10/16/17 16:59 Plt Count 66 K/mcL (140-400) L 10/16/17 16:59 Immature Plt Fraction 9.3 % (1.1-6.1) H 10/16/17 16:59 PT 19.2 Seconds (9.4-12.1) H 10/17/17 00:58 APTT 39.5 Seconds (26.0-36.0) H 10/17/17 00:58 Chloride 111 mEq/L (98-107) H 10/17/17 00:58 BUN 5 mg/dL (6-20) L 10/17/17 00:58 Creatinine 0.56 mg/dL (0.70-1.30) L 10/17/17 00:58 Glucose 109 mg/dL (70-105) H 10/17/17 00:58 Calcium 7.9 mg/dL (8.6-10.3) L 10/17/17 00:58 Total Bilirubin 3.1 mg/dL (0.3-1.0) H 10/17/17 00:58 Direct Bilirubin 1.7 mg/dL (0.0-0.2) H 10/17/17 00:58 Indirect Bilirubin 1.4 mg/dL (0.0-1.2) H 10/17/17 00:58 AST 278 Units/L (13-39) H 10/17/17 00:58 ALT 138 Units/L (7-52) H 10/17/17 00:58 Ammonia 119 mcmol/L (16-53) H 10/16/17 17:48 C-Reactive Protein 11 mg/L (Less than 10) H 10/16/17 16:59 Serum Total Protein 5.0 g/dL (6.4-8.9) L 10/17/17 00:58 Albumin 2.6 g/dL (3.5-5.7) L 10/17/17 00:58 Urine Color Maya (Yellow) A 10/16/17 17:28 Urine Clarity Cloudy (Clear) A 10/16/17 17:28 Ur Specific [place] 1.026 (1.010-1.025) H 10/16/17 17:28 Urine Ketones Trace mg/dL (Negative) H 10/16/17 17:28 Urine Nitrite Positive (Negative) A 10/16/17 17:28 Urine Bilirubin Moderate (Negative) H 10/16/17 17:28 Urine Urobilinogen 2.0 mg/dL (Normal) H 10/16/17 17:28 Ur Leukocyte Esterase Small (Negative) H 10/16/17 17:28 Urine Microscopic RBC 5-15 per hpf (0-3) H 10/16/17 17:28 Ur Culture Indicated? YES (NO) A 10/16/17 17:28 Acetaminophen < 10 mcg/mL (10-20) L 10/16/17 16:59 U Benzodiazepines Scrn Positive ng/mL (Btufwa=322) H 10/17/17 05:36 Hepatitis C Ab Screen Reactive (Nonreactive) H 10/17/17 00:58 Diabetes panel 10/17/17 10/17/17 10/17/17 Range/Units 00:58 00:58 00:58 Sodium 140 140 (136-145) mEq/L Potassium 4.0 (3.5-5.1) mEq/L Chloride 111 H (98-107) mEq/L Carbon Dioxide 27 (23-29) mEq/L BUN 5 L (6-20) mg/dL Creatinine 0.56 L (0.70-1.30) mg/dL Glucose 109 H (70-105) mg/dL Calcium 7.9 L (8.6-10.3) mg/dL AST 277 H 278 H (13-39) Units/L ALT 136 H 138 H (7-52) Units/L Alkaline Phosphatase 91 90 (34-104) Units/L Albumin 2.6 L 2.6 L (3.5-5.7) g/dL Calcium panel 10/17/17 10/17/17 Range/Units 00:58 00:58 Calcium 7.9 L (8.6-10.3) mg/dL Phosphorus 3.6 (2.7-4.5) mg/dL Albumin 2.6 L 2.6 L (3.5-5.7) g/dL Pituitary panel 10/17/17 10/17/17 Range/Units 00:58 00:58 Sodium 140 140 (136-145) mEq/L Potassium 4.0 (3.5-5.1) mEq/L Chloride 111 H (98-107) mEq/L Carbon Dioxide 27 (23-29) mEq/L BUN 5 L (6-20) mg/dL Creatinine 0.56 L (0.70-1.30) mg/dL Glucose 109 H (70-105) mg/dL Calcium 7.9 L (8.6-10.3) mg/dL Adrenal panel 10/17/17 10/17/17 10/17/17 Range/Units 00:58 00:58 00:58 Sodium 140 140 (136-145) mEq/L Potassium 4.0 (3.5-5.1) mEq/L Chloride 111 H (98-107) mEq/L Carbon Dioxide 27 (23-29) mEq/L BUN 5 L (6-20) mg/dL Creatinine 0.56 L (0.70-1.30) mg/dL Glucose 109 H (70-105) mg/dL Calcium 7.9 L (8.6-10.3) mg/dL Total Bilirubin 3.1 H 3.1 H (0.3-1.0) mg/dL AST 277 H 278 H (13-39) Units/L ALT 136 H 138 H (7-52) Units/L Alkaline Phosphatase 91 90 (34-104) Units/L Albumin 2.6 L 2.6 L (3.5-5.7) g/dL All other labs normal. Consult Discharge Plan - Plan Referrals: NONE,PCP [Primary Care Provider] - <Adrian Islas - Last Filed: 10/17/17 14:07> Date of Encounter: 10/17/17 Past Med Surg Social Fam HX - Family History Brother Name: Edilson Mitchell Age: 44 Living Status: Still Living Hx Family Cardiac Disorders: Yes (Heart cath done,results pending) Father Hx Family Cancer: Yes (Lung) Review of Systems All systems PM: The remainder of the systems were reviewed and are negative General Surgery Exam Initial Vital Signs Temp Pulse Resp BP Pulse Ox 98.0 F 83 18 144/78 97 10/16/17 16:28 10/16/17 16:28 10/16/17 16:28 10/16/17 16:28 10/16/17 16:28 Exam Initial Vital Signs Temp Pulse Resp BP Pulse Ox 98.0 F 83 18 144/78 97 10/16/17 16:28 10/16/17 16:28 10/16/17 16:28 10/16/17 16:28 10/16/17 16:28 Results - Labs 10/17/17 08:57 10/17/17 00:58 Abnormal lab results WBC 3.7 K/mcL (4.3-11.1) L 10/17/17 08:57 RBC 4.11 M/mcL (4.19-5.50) L 10/17/17 08:57 Hgb 12.3 g/dL (12.9-16.9) L 10/17/17 08:57 Hct 37.1 % (37.5-50.1) L 10/17/17 08:57 RDW 15.9 % (11.5-14.5) H 10/17/17 08:57 Plt Count 54 K/mcL (140-400) L 10/17/17 08:57 MPV 12.7 fL (9.4-12.4) H 10/17/17 08:57 Immature Plt Fraction 9.3 % (1.1-6.1) H 10/16/17 16:59 PT 19.2 Seconds (9.4-12.1) H 10/17/17 00:58 APTT 39.5 Seconds (26.0-36.0) H 10/17/17 00:58 Chloride 111 mEq/L (98-107) H 10/17/17 00:58 BUN 5 mg/dL (6-20) L 10/17/17 00:58 Creatinine 0.56 mg/dL (0.70-1.30) L 10/17/17 00:58 Glucose 109 mg/dL (70-105) H 10/17/17 00:58 Calcium 7.9 mg/dL (8.6-10.3) L 10/17/17 00:58 Total Bilirubin 3.1 mg/dL (0.3-1.0) H 10/17/17 00:58 Direct Bilirubin 1.7 mg/dL (0.0-0.2) H 10/17/17 00:58 Indirect Bilirubin 1.4 mg/dL (0.0-1.2) H 10/17/17 00:58 AST 278 Units/L (13-39) H 10/17/17 00:58 ALT 138 Units/L (7-52) H 10/17/17 00:58 Ammonia 119 mcmol/L (16-53) H 10/16/17 17:48 C-Reactive Protein 11 mg/L (Less than 10) H 10/16/17 16:59 Serum Total Protein 5.0 g/dL (6.4-8.9) L 10/17/17 00:58 Albumin 2.6 g/dL (3.5-5.7) L 10/17/17 00:58 Urine Color Maya (Yellow) A 10/16/17 17:28 Urine Clarity Cloudy (Clear) A 10/16/17 17:28 Ur Specific [place] 1.026 (1.010-1.025) H 10/16/17 17:28 Urine Ketones Trace mg/dL (Negative) H 10/16/17 17:28 Urine Nitrite Positive (Negative) A 10/16/17 17:28 Urine Bilirubin Moderate (Negative) H 10/16/17 17:28 Urine Urobilinogen 2.0 mg/dL (Normal) H 10/16/17 17:28 Ur Leukocyte Esterase Small (Negative) H 10/16/17 17:28 Urine Microscopic RBC 5-15 per hpf (0-3) H 10/16/17 17:28 Ur Culture Indicated? YES (NO) A 10/16/17 17:28 Acetaminophen < 10 mcg/mL (10-20) L 10/16/17 16:59 U Benzodiazepines Scrn Positive ng/mL (Poxqun=090) H 10/17/17 05:36 Hepatitis C Ab Screen Reactive (Nonreactive) H 10/17/17 00:58 Diabetes panel 10/17/17 10/17/17 10/17/17 Range/Units 00:58 00:58 00:58 Sodium 140 140 (136-145) mEq/L Potassium 4.0 (3.5-5.1) mEq/L Chloride 111 H (98-107) mEq/L Carbon Dioxide 27 (23-29) mEq/L BUN 5 L (6-20) mg/dL Creatinine 0.56 L (0.70-1.30) mg/dL Glucose 109 H (70-105) mg/dL Calcium 7.9 L (8.6-10.3) mg/dL AST 277 H 278 H (13-39) Units/L ALT 136 H 138 H (7-52) Units/L Alkaline Phosphatase 91 90 (34-104) Units/L Albumin 2.6 L 2.6 L (3.5-5.7) g/dL Calcium panel 10/17/17 10/17/17 Range/Units 00:58 00:58 Calcium 7.9 L (8.6-10.3) mg/dL Phosphorus 3.6 (2.7-4.5) mg/dL Albumin 2.6 L 2.6 L (3.5-5.7) g/dL Pituitary panel 10/17/17 10/17/17 Range/Units 00:58 00:58 Sodium 140 140 (136-145) mEq/L Potassium 4.0 (3.5-5.1) mEq/L Chloride 111 H (98-107) mEq/L Carbon Dioxide 27 (23-29) mEq/L BUN 5 L (6-20) mg/dL Creatinine 0.56 L (0.70-1.30) mg/dL Glucose 109 H (70-105) mg/dL Calcium 7.9 L (8.6-10.3) mg/dL Adrenal panel 10/17/17 10/17/17 10/17/17 Range/Units 00:58 00:58 00:58 Sodium 140 140 (136-145) mEq/L Potassium 4.0 (3.5-5.1) mEq/L Chloride 111 H (98-107) mEq/L Carbon Dioxide 27 (23-29) mEq/L BUN 5 L (6-20) mg/dL Creatinine 0.56 L (0.70-1.30) mg/dL Glucose 109 H (70-105) mg/dL Calcium 7.9 L (8.6-10.3) mg/dL Total Bilirubin 3.1 H 3.1 H (0.3-1.0) mg/dL AST 277 H 278 H (13-39) Units/L ALT 136 H 138 H (7-52) Units/L Alkaline Phosphatase 91 90 (34-104) Units/L Albumin 2.6 L 2.6 L (3.5-5.7) g/dL All other labs normal. - Attending Attestation The patient is evaluated on morning rounds and I saw the patient [id number] in the afternoon. Information shared with the resident. The patient has a personal history of hepatitis C. I personally reviewed the CAT scan images. There is some pericholecystic fluid but also some perihepatic fluid and fluid in the pelvis. The bilirubin is 2.9 the transaminases are elevated the patient has a mild coagulopathy with an INR of 1.7 and platelets are low at 60. Ultrasound is not suggestive of acute cholecystitis. I have ordered a hepatobiliary scan. The patient is not having any right upper quadrant pain and does not have leukocytosis. This appears to be a primary hepatocellular process rather than acute cholecystitis. We will be glad to follow along with you. Adrian Islas MD FACS
[2017-10-17 09:23] LABS: Basophils % 0.8 %; Eosinophils # 0.1 K/mcL (0.0-0.6); Eosinophils % 3.5 %; Hematocrit 37.1 % (37.5-50.1); Hemoglobin 12.3 g/dL (12.9-16.9); Lymphocytes # 1.6 K/mcL (0.6-4.6); Lymphocytes % 43.6 %; Mean Corpuscular HGB Conc 33.2 g/dL (31.6-35.5); Mean Corpuscular Hemoglobin 29.9 pg (28.0-33.3); Mean Corpuscular Volume 90.3 fL (83.0-100.0); Mean Platelet Volume 12.7 fL (9.4-12.4); Monocytes # 0.3 K/mcL (0.0-1.3); Monocytes % 9.2 %; Neutrophils # 1.6 K/mcL (1.6-8.9); Red Blood Count 4.11 M/mcL (4.19-5.50); Red Cell Distribution Width 15.9 % (11.5-14.5); Segmented Neutrophils % 42.9 %
[2017-10-17 09:25] LABS: Platelet Count 54 K/mcL (140-400)
[2017-10-17] MEDS: cefTRIAXone 1,000 MG in Water for inj. (sterile) 20 ML 10 ML IVP SCH (09:55)
[2017-10-17] MEDS: MetroNIDAZOLE 500 MG/100 ML 500 MG/100 ML BAG IVPB SCH ×2 (11:43→17:22)
--- NOTE | 2017-10-17 12:37 | Internal Med Progress Note ---
Date of Encounter: 10/17/17 Time of Encounter: 12:35 - Assessment and plan (1) UTI (urinary tract infection) Current Visit: Yes Status: Acute Assessment and plan: Follow final urine culture. Continue ceftriaxone. Qualifiers: Urinary tract infection type: acute cystitis Hematuria presence: without hematuria Qualified Code(s): N30.00 - Acute cystitis without hematuria (2) Cholecystitis Current Visit: Yes Status: Acute Assessment and plan: Patient with right upper quadrant abdominal pain, and CAT scan and gallbladder ultrasound findings of acute cholecystitis without Cholelithiasis De La O sign positive on exam. HIDA scan and surgery COPD. Continue ceftriaxone and Flagyl. (3) Acute abdominal pain Current Visit: Yes Status: Acute Assessment and plan: As above. Patient's CAT scan revealed splenomegaly which could be due to hypersplenism from chronic liver disease. (4) Hyperammonemia Current Visit: Yes Status: Acute Assessment and plan: ammonia on presentation >100. Continue lactulose. Gastroenterology is following. Patient's mental status is stable and he is alert and oriented 3. (5) Thrombocytopenia Current Visit: Yes Status: Acute Assessment and plan: Presenting platelet count 54,000. 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 SCDs for DVT prophylaxis. No bleeding at this time. Continue to monitor platelet count. (6) Upper GI bleed Current Visit: Yes Status: Acute Assessment and plan: Patient reports a history of hematemesis, which is no longer ongoing. He is hemodynamically stable, hemoglobin is stable at 13. EKG today done shows esophageal varices and portal gastropathy. 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 following with manager fitness Patient has been in remission for 3+ years Consider hepatology eval upon discharge (8) Elevated INR Current Visit: Yes Status: Acute Assessment and plan: INR 1.8 Gve Vit K Possibly due to liver disease Repeat INR a.m (9) Varices, esophageal Current Visit: Yes Status: Acute Assessment and plan: Patient endorses bloody emesis and bloody bowel movements, concerning for esophageal varices Continue PI BID EGD shows Esophageal varices with portal gastropathy NO bleeding found on EGD Start patient on propanolol, continue to monitor Qualifiers: Esophageal varices type: secondary Esophageal varices bleeding: with bleeding Qualified Code(s): I85.11 - Secondary esophageal varices with bleeding (10) Opiate dependence Current Visit: Yes Status: Chronic Assessment and plan: continue home dose of subutex Qualifiers: Substance use status: uncomplicated Qualified Code(s): F11.20 - Opioid dependence, uncomplicated - Time Spent With Patient Total time spent is greater than 50% in coordination of care (as documented) at patient's floor/unit and/or counseling patient: - Subjective Interval history: Seen and examined at the bedside Admitted and being managed for what seems to be acute cholecystitis, UTI, opiate dependence, chronic hep C, and decompensated liver cirrhosis with portal hypertension and splenomegaly. He is seen and evaluated at the bedside his main complaint is Asking for Something to Eat. He Is Awaiting EGD, HIDA Scan, and Review by Gastroenterology and General Surgery at My Time of Review. - Constitutional Vitals: Temp Pulse Resp BP Pulse Ox 98.0 F 65 18 112/66 97 10/17/17 10:10/17/17 10:10/17/17 10:10/17/17 10:10/17/17 08:19 General appearance: Present: cooperative, mild distress, A&O X 3, answers questions appropriately - Head Head exam: Present: atraumatic, normocephalic - Eye Eye exam: Present: PERRL, scleral icterus, conjuntiva pink Pupils: Present: PERRL - Neck Neck exam general surgery: Present: supple, trachea midline. Absent: lymphadenopathy - Respiratory Respiratory exam: Present: CTAB. Absent: accessory muscle use, rales, rhonchi, wheezes - Cardiovascular Cardiovascular exam: Present: RRR, +S1, +S2. Absent: diastolic murmur, gallop, rubs, systolic murmur - GI/Abdominal GI/Abdominal exam: Present: normal bowel sounds, tenderness (De La O's sign positive) - Extremities Exam Extremities exam: Present: warm, radial pulses palpable and symmetrical. Absent : calf tenderness, cyanotic, pedal edema - Neurological Exam Neurological exam: Present: alert, CN II-XII intact, oriented X3, no focal deficits, strengths equal and symetr throughout. Absent: pronater drift, facial droop, speech deficit - Skin Skin exam: Present: dry, intact Internal Medicine: Result - Labs CBC & Chem 7: 10/17/17 08:57 10/17/17 00:58 Labs: Short CBC 10/17/17 Range/Units 08:57 WBC 3.7 L (4.3-11.1) K/mcL Hgb 12.3 L (12.9-16.9) g/dL Hct 37.1 L (37.5-50.1) % Plt Count 54 L (140-400) K/mcL Neutrophils # 1.6 (1.6-8.9) K/mcL BMP 10/17/17 10/17/17 00:58 00:58 Sodium 140 140 Potassium 4.0 Chloride 111 H Carbon Dioxide 27 BUN 5 L Creatinine 0.56 L Glucose 109 H Calcium 7.9 L Liver Function 10/17/17 10/17/17 Range/Units 00:58 00:58 Total Bilirubin 3.1 H 3.1 H (0.3-1.0) mg/dL Direct Bilirubin 1.7 H (0.0-0.2) mg/dL AST 277 H 278 H (13-39) Units/L ALT 136 H 138 H (7-52) Units/L Alkaline Phosphatase 91 90 (34-104) Units/L Albumin 2.6 L 2.6 L (3.5-5.7) g/dL - ABG Interpretation ABG results: PT/INR, D-dimer PT 19.2 Seconds (9.4-12.1) H 10/17/17 00:58 - Impressions Impressions Bile Acid Absorption NM 10/17/17 07:32 IMPRESSION: Nondiagnostic HIDA scan. RECOMMENDATIONS: Consider delayed imaging if patient is able to tolerate. D/ / Danilo Hickman MD / Danilo Hickman MD Interpreting Provider: Danilo Hickman MD Consult Discharge Plan - Plan Referrals: NONE,PCP [Primary Care Provider] -
[2017-10-17] MEDS ORDERED: *HR* Propofol 200 MG/20 ML VIAL IVP ONE (12:41)
--- NOTE | 2017-10-17 13:37 | Anesthesia Evaluation PreOp ---
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 Other Medical History: Hepatic (hepatitis C, cirrhosis), GERD, Other ( esophageal varices, thrombocytopenia,) Anesthesia History: Past Anesthesia (no prior general anesthesia) Alcohol Use: none Drug use: none (10 years heroin use, clean 3 years) Medications and Allergies Buprenorphine HCl [Subutex] 8 mg SL BID 10/26/16 [History] 3 Allergy/AdvReac Type Severity Reaction Status Date / Time No Known Allergies Allergy Verified 06/26/15 16:04 - Meds/Allergy Pre-op Review Medications Reviewed: Yes Allergies Reviewed: Yes Beta Blockers on Current Med List: No Anesthesia Results - Labs 10/17/17 08:57 10/17/17 00:58 - Imaging EKG: report reviewed (10/26/2016 SINUS RHYTHM MODERATE INTRAVENTRICULAR CONDUCTION DELAY LEFT ANTERIOR FASCICULAR BLOCK) Anesthesia Exam Vital Signs/O2 Sat/Glucose, Most Recent Temp Pulse Resp BP Pulse Ox 98.0 F 98 16 137/85 73 10/17/17 10:08 10/17/17 13:22 10/17/17 13:22 10/17/17 13:22 10/17/17 13:22 Blood Glucose* 100 Height: 6'2''/1.88 m Weight: 240 lbs/108.9 kg NPO (# of Hours): 8 Pain Scale: 0 Pain Scale Used: Numeric (1 - 10) - HEENT Pupil (Motor): EOMI Mallampati: II Teeth: Missing, Poor dentition (loose lower tooth) Oral Opening: Greater than 3 - 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
--- NOTE | 2017-10-17 14:36 | Anesthesia Evaluation Post Op ---
Date of Encounter: 10/17/17 Time of Encounter: 14:15 - Vital Signs Vital Signs: Vital Signs/O2 Sat/Glucose, Most Recent Temp Pulse Resp BP Pulse Ox 98.0 F 73 18 123/77 97 10/17/17 14:32 10/17/17 14:32 10/17/17 14:32 10/17/17 14:32 10/17/17 14:32 Blood Glucose* 100 - Lungs Lungs: Clear Ascult./Percussion - Airway Airway: Non-obstructed - Cardiovascular Regular Rate, Baseline Rhythm - Mental Status Mental Status: Alert & Oriented, Answers Appropriately - Pain Pain Scale: 0 Pain Scale used: Numeric (1 - 10) - Nausea Vomiting Nausea Vomiting: Not Present - Hydration Hydration: NPO Notes: 10/17/17 14:36 naac - Discharge PostOp Status: Transfer Patient to floor
[2017-10-17] MEDS: *HR* Buprenorphine HCl 8 MG TAB.SUBL SL SCH ×2 (15:29→20:32)
[2017-10-17] MEDS ORDERED: *HR* Phytonadione 5 MG TABLET PO ONE ×2 (16:26→18:30)
[2017-10-17] MEDS ORDERED: SODIUM CHLORIDE/NAHCO3/KCL/PEG 4,000 ML SOLN.RECON PO ONE (19:00)
--- NOTE | 2017-10-17 19:58 | Electrocardiograph Report ---
[address] [address] Test Date: 2017-10-16 Pat Name: Samson Mitchell Department: 102 Room: 3A37 Gender: M Crusher Tender: Daniele : 1970 Requested By: Haider Hernandez Order Number: [id number] Reading MD: Miko Noel Measurements Intervals [place] Rate: 76 P: 48 [place]: 144 QRS: -47 QRSD: 121 T: 41 QT: 415 QTc: 445 Interpretive Statements SINUS RHYTHM RIGHT BUNDLE BRANCH BLOCK LEFT ANTERIOR FASCICULAR BLOCK Electronically Signed On 10-17-2017 19:56:25 EDT by Miko Noel
[2017-10-17] MEDS: Lactulose Oral Soln 20 GM/30 ML UDC PO SCH (20:33)
[2017-10-17] MEDS ORDERED: Lactulose Oral Soln 20 GM/30 ML UDC PO SCH (21:00)
[2017-10-18] MEDS: MetroNIDAZOLE 500 MG/100 ML 500 MG/100 ML BAG IVPB SCH ×2 (00:41→08:47)
[2017-10-18] MEDS: Pantoprazole 40 MG VIAL IVP SCH ×2 (05:19→17:49)
[2017-10-18 05:33] LABS: Hemoglobin 12.6 g/dL (12.9-16.9); Mean Corpuscular Hemoglobin 29.6 pg (28.0-33.3); Red Blood Count 4.26 M/mcL (4.19-5.50)
[2017-10-18 05:35] LABS: Basophils # 0.1 K/mcL (0.0-0.2); Basophils % 1.2 %; Eosinophils # 0.1 K/mcL (0.0-0.6); Eosinophils % 3.2 %; Hematocrit 38.2 % (37.5-50.1); Immature Granulocytes % 0.2 % (0-4); Immature Platelets 13.6 % (1.1-6.1); Lymphocytes # 1.6 K/mcL (0.6-4.6); Lymphocytes % 40.9 %; Mean Corpuscular Volume 89.7 fL (83.0-100.0); Mean Platelet Volume 12.8 fL (9.4-12.4); Monocytes # 0.3 K/mcL (0.0-1.3); Monocytes % 7.5 %; Neutrophils # 1.9 K/mcL (1.6-8.9); Red Cell Distribution Width 15.8 % (11.5-14.5)
[2017-10-18 05:38] LABS: INR 1.7; Platelet Count 57 K/mcL (140-400); Prothrombin Time 18.2 Seconds (9.4-12.1)
[2017-10-18 05:51] LABS: Alanine Aminotransferase 136 Units/L (7-52); Albumin 2.9 g/dL (3.5-5.7); Albumin/Globulin Ratio 1.3 (1.1-2.2); Alkaline Phosphatase 96 Units/L (34-104); Aspartate Amino Transferase 262 Units/L (13-39); BUN/Creatinine Ratio 13 (6-26); Bilirubin,Total 4.9 mg/dL (0.3-1.0); Blood Urea Nitrogen 6 mg/dL (6-20); Carbon Dioxide 25 mEq/L (23-29); Chloride 109 mEq/L (98-107); Globulin 2.3 g/dL (2.4-3.5); Glucose 112 mg/dL (70-105); Osmolality,Calculated 282 (280-300); Potassium 4.3 mEq/L (3.5-5.1); Sodium 137 mEq/L (136-145); Total Protein 5.2 g/dL (6.4-8.9); eGFR For African Americans > 60 (> 60); eGFR For Non-African Americans > 60 (> 60)
--- NOTE | 2017-10-18 07:32 | General Surgery Progress Note ---
<Lauren Ramírez - Last Filed: 10/18/17 08:28> Date of Encounter: 10/18/17 Time of Encounter: 07:00 - Assessment and Plan (1) Acute abdominal pain Current Visit: Yes Status: Acute Labs 10/17/17 show positive hepatitis C antibodies, abnormal LFTs, but no leukocytosis and no fever. WBC is 5.1. CT of the abdomen and pelvis showed mild to moderate intra and extrahepatic bile duct dilatation, common duct measuring 14 mm diameter with no definite stone or mass lesion evident. Diffuse gallbladder wall thickening and trace pericholecystic fluid is seen. Splenomegaly. Ultrasound the gallbladder showed No gallstones are evident. Diffuse gallbladder wall thickening is seen. Negative sonographic De La O's sign. Patient is afebrile and appears in no acute distress. Plan: no surgical intervention at this time. Recommend HIDA scan GI on board per primary team Pain control and supportive care Surgery will sign off at this time. Thank you for allowing Surgery to participate in this patient's care. (2) History of hepatitis C Current Visit: Yes Status: Chronic History of hepatitis C likely secondary to previous substance abuse disorder. Patient states that he has been clean for the past 3 years. Labs shows elevated LFTs. Management per primary team. Surgery will sign off at this time. Thank you for allowing Surgery to participate in this patient's care. Subjective Patient reports: no new complaints, feels better, pain is less, flatus, bowel movement (Patient admits having bowel movements and describing his stools as normal and soft. HE denies any blood in his stool at this time), afebrile, other (Patient states that his abdominal pain has significantly improved and states "I want to get out of here". PAtient stated that he did not tolerate the bowel prep and refuses to have a colonoscopy completed. ) Objective Vital Signs - Last 8 Hours Temp Pulse Resp BP Pulse Ox 10/18/17 06:30 98.4 F 57 16 111/66 95 10/18/17 03:15 98.3 F 66 14 105/56 93 10/17/17 23:43 98.8 F 67 14 109/46 97 Intake and Output 10/17/17 10/17/17 10/18/17 15:59 23:59 07:59 Intake Total 110 / 110 2790.5 / 2790.5 100 / 100 Output Total 0 / 0 0 / 0 0 / 0 Balance 110 / 110 2790.5 / 2790.5 100 / 100 Intake: IV Fluids 110 / 110 150.5 / 150.5 100 / 100 Rocephin 1,000 MG In Water for 10 / 10 inj. (sterile) 10 ML @ 300 mls/ hr IVP DAILY [facility] Rx#:[id number] Flagyl Premix 500 MG/100 ML 500 100 / 100 100 / 100 100 / 100 mg In 100 ml @ 100 mls/hr IVPB Q8H [facility] Rx#:[id number] Oral 0 / 0 2640 / 2640 0 / 0 Output: Urine 0 / 0 0 / 0 0 / 0 Other: Meal NPO # Voids 6 # Bowel Movements 6 Weight 108.998 kg Blood Glucose* 100 104 Patient Weight 10/18/17 23:59 Weight 108.998 kg - General physical appearance well developed, no distress, no pain - Eyes PERRL, normal ocular movement - ENT normal mucosa - Neck Neck exam: trachea midline - Respiratory normal expansion, normal respiratory effort - Cardiovascular Cardiovascular exam: Present: RRR, no murmurs/rubs/gallops - Abdomen Abdomen: Present: bowel sounds present, soft, non tender. Absent: distended, guarding, rebound, rigid - Integumentary no rash - Neurologic CN 2-12 grossly intact - Psychiatric oriented to time, oriented to person, oriented to place - Labs 10/18/17 05:13 10/18/17 05:13 Diabetes panel 10/18/17 Range/Units 05:13 Sodium 137 (136-145) mEq/L Potassium 4.3 (3.5-5.1) mEq/L Chloride 109 H (98-107) mEq/L Carbon Dioxide 25 (23-29) mEq/L BUN 6 (6-20) mg/dL Creatinine 0.45 L (0.70-1.30) mg/dL Glucose 112 H (70-105) mg/dL Calcium 8.0 L (8.6-10.3) mg/dL AST 262 H (13-39) Units/L ALT 136 H (7-52) Units/L Alkaline Phosphatase 96 (34-104) Units/L Albumin 2.9 L (3.5-5.7) g/dL Calcium panel 10/18/17 Range/Units 05:13 Calcium 8.0 L (8.6-10.3) mg/dL Albumin 2.9 L (3.5-5.7) g/dL Pituitary panel 10/18/17 Range/Units 05:13 Sodium 137 (136-145) mEq/L Potassium 4.3 (3.5-5.1) mEq/L Chloride 109 H (98-107) mEq/L Carbon Dioxide 25 (23-29) mEq/L BUN 6 (6-20) mg/dL Creatinine 0.45 L (0.70-1.30) mg/dL Glucose 112 H (70-105) mg/dL Calcium 8.0 L (8.6-10.3) mg/dL Adrenal panel 10/18/17 Range/Units 05:13 Sodium 137 (136-145) mEq/L Potassium 4.3 (3.5-5.1) mEq/L Chloride 109 H (98-107) mEq/L Carbon Dioxide 25 (23-29) mEq/L BUN 6 (6-20) mg/dL Creatinine 0.45 L (0.70-1.30) mg/dL Glucose 112 H (70-105) mg/dL Calcium 8.0 L (8.6-10.3) mg/dL Total Bilirubin 4.9 H (0.3-1.0) mg/dL AST 262 H (13-39) Units/L ALT 136 H (7-52) Units/L Alkaline Phosphatase 96 (34-104) Units/L Albumin 2.9 L (3.5-5.7) g/dL Consult Discharge Plan - Plan Referrals: NONE,PCP [Primary Care Provider] - <Adrian Islas - Last Filed: 10/19/17 08:06> Date of Encounter: 10/18/17 Objective Vital Signs - Last 8 Hours Temp Pulse Resp BP Pulse Ox 10/19/17 07:16 98.0 F 61 16 105/55 96 10/19/17 03:51 98.1 F 61 14 117/60 98 Intake and Output 10/18/17 10/19/17 10/19/17 23:59 07:59 15:59 Intake Total 120 / 120 0 / 0 Balance 120 / 120 0 / 0 Intake: Oral 120 / 120 0 / 0 Other: Meal Dinner Percent of Meal Consumed 50% # Voids 1 1 # Bowel Movements 0 Weight 108.817 kg Patient Weight 04/06/18 23:59 Weight 108.817 kg - Labs 10/19/17 04:41 10/19/17 04:41 Diabetes panel 10/19/17 Range/Units 04:41 Sodium 139 (136-145) mEq/L Potassium 4.2 (3.5-5.1) mEq/L Chloride 111 H (98-107) mEq/L Carbon Dioxide 26 (23-29) mEq/L BUN 7 (6-20) mg/dL Creatinine 0.46 L (0.70-1.30) mg/dL Glucose 96 (70-105) mg/dL Calcium 7.9 L (8.6-10.3) mg/dL Calcium panel 10/19/17 Range/Units 04:41 Calcium 7.9 L (8.6-10.3) mg/dL Pituitary panel 10/19/17 Range/Units 04:41 Sodium 139 (136-145) mEq/L Potassium 4.2 (3.5-5.1) mEq/L Chloride 111 H (98-107) mEq/L Carbon Dioxide 26 (23-29) mEq/L BUN 7 (6-20) mg/dL Creatinine 0.46 L (0.70-1.30) mg/dL Glucose 96 (70-105) mg/dL Calcium 7.9 L (8.6-10.3) mg/dL Adrenal panel 10/19/17 Range/Units 04:41 Sodium 139 (136-145) mEq/L Potassium 4.2 (3.5-5.1) mEq/L Chloride 111 H (98-107) mEq/L Carbon Dioxide 26 (23-29) mEq/L BUN 7 (6-20) mg/dL Creatinine 0.46 L (0.70-1.30) mg/dL Glucose 96 (70-105) mg/dL Calcium 7.9 L (8.6-10.3) mg/dL - Attending Attestation I examined this patient and my medical decision-making was reviewed with the Resident Physician. I agree with the documented findings, disposition and treatment plan as described except to the extent set forth below. The patient is seen and evaluated on morning rounds. His bilirubin is worsening. This appears to be related to hepatic failure. I do not think that the patient has acute cholecystitis. Hepatobiliary scanning will answer this question, but the patient refuses. We will sign off Adrian Islas MD FACS
[2017-10-18] MEDS: Lactulose Oral Soln 20 GM/30 ML UDC PO SCH ×2 (08:47→19:31)
[2017-10-18] MEDS: *HR* Buprenorphine HCl 8 MG TAB.SUBL SL SCH ×2 (08:48→19:30)
[2017-10-18] MEDS: cefTRIAXone 1,000 MG in Water for inj. (sterile) 20 ML 10 ML IVP SCH (08:48)
[2017-10-18] MEDS ORDERED: Polyethylene Glycol 3350 255 GM POWDER PO STA (09:26)
--- NOTE | 2017-10-18 11:54 | Internal Med Progress Note ---
Date of Encounter: 10/18/17 Time of Encounter: 11:51 - Assessment and plan (1) UTI (urinary tract infection) Current Visit: Yes Status: Ruled-out Assessment and plan: Urine culture is negative with no growth Discontinue antibiotics Qualifiers: Urinary tract infection type: acute cystitis Hematuria presence: without hematuria Qualified Code(s): N30.00 - Acute cystitis without hematuria (2) Cholecystitis Current Visit: Yes Status: Acute Assessment and plan: Patient with right upper quadrant abdominal pain, and CAT scan and gallbladder ultrasound findings of acute cholecystitis without Cholelithiasis De La O sign positive on exam inconclusive No intervention per surgery Discontinue antibiotics (3) Acute abdominal pain Current Visit: Yes Status: Acute Assessment and plan: As above. Patient's CAT scan revealed splenomegaly which could be due to hypersplenism from chronic liver disease. (4) Hyperammonemia Current Visit: Yes Status: Acute Assessment and plan: ammonia on presentation >100. Continue lactulose. Gastroenterology is following. Patient's mental status is stable and he is alert and oriented 3. (5) Thrombocytopenia Current Visit: Yes Status: Acute Assessment and plan: Presenting platelet count 54,000. 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 SCDs for DVT prophylaxis. No bleeding at this time. Continue to monitor platelet count. (6) Upper GI bleed Current Visit: Yes Status: Acute Assessment and plan: Patient reports a history of hematemesis, which is no longer ongoing. He is hemodynamically stable, hemoglobin is stable at 13. EKG done 10/17 shows esophageal varices and portal gastropathy. 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 Patient has been in remission for 3+ years Consider hepatology eval upon discharge (8) Elevated INR Current Visit: Yes Status: Acute Assessment and plan: INR 1.7 Possibly due to liver disease (9) Varices, esophageal Current Visit: Yes Status: Acute Assessment and plan: Patient endorses bloody emesis and bloody bowel movements, concerning for esophageal varices Continue PI BID EGD shows Esophageal varices with portal gastropathy NO bleeding found on EGD continue propanolol, continue to monitor Qualifiers: Esophageal varices type: secondary Esophageal varices bleeding: with bleeding Qualified Code(s): I85.11 - Secondary esophageal varices with bleeding (10) Opiate dependence Current Visit: Yes Status: Chronic Assessment and plan: continue home dose of subutex Qualifiers: Substance use status: uncomplicated Qualified Code(s): F11.20 - Opioid dependence, uncomplicated - Time Spent With Patient Total time spent is greater than 50% in coordination of care (as documented) at patient's floor/unit and/or counseling patient: - Subjective Interval history: Seen and examined at the bedside Admitted and being managed for what seems to be acute cholecystitis, UTI, opiate dependence, chronic hep C, and decompensated liver cirrhosis with portal hypertension and splenomegaly. He is seen and evaluated at the bedside his main complaint is Asking for Something to Eat. s/p EGD 10/17 with findings consistent with portal HTN, esophageal and gastric varices, non-bleeding, Awaiting colonoscopy today IR team at the bedside during eval, patient did not have enough ascitic fluid to be tapped LFT is stable - Constitutional Vitals: Temp Pulse Resp BP Pulse Ox 97.5 F L 64 15 132/81 100 10/18/17 10:51 10/18/17 10:51 10/18/17 10:51 10/18/17 10:51 10/18/17 10:51 General appearance: Present: cooperative, A&O X 3, no acute distress, answers questions appropriately - Head Head exam: Present: atraumatic, normocephalic - Eye Eye exam: Present: PERRL, scleral icterus, conjuntiva pink Pupils: Present: PERRL - Neck Neck exam general surgery: Present: supple, trachea midline. Absent: lymphadenopathy - Respiratory Respiratory exam: Present: CTAB. Absent: accessory muscle use, rales, rhonchi, wheezes - Cardiovascular Cardiovascular exam: Present: RRR, +S1, +S2. Absent: diastolic murmur, gallop, rubs, systolic murmur - GI/Abdominal GI/Abdominal exam: Present: normal bowel sounds, soft, no peritoneal signs. Absent: distended, tenderness Additional comments: RUQ tenderness resolved - Extremities Exam Extremities exam: Present: warm, radial pulses palpable and symmetrical. Absent : calf tenderness, cyanotic, pedal edema - Neurological Exam Neurological exam: Present: alert, CN II-XII intact, oriented X3, no focal deficits. Absent: pronater drift, facial droop, speech deficit - Skin Skin exam: Present: dry, intact Internal Medicine: Result - Labs CBC & Chem 7: 10/18/17 05:13 10/18/17 05:13 Labs: Short CBC 10/18/17 Range/Units 05:13 WBC 4.0 L (4.3-11.1) K/mcL Hgb 12.6 L (12.9-16.9) g/dL Hct 38.2 (37.5-50.1) % Plt Count 57 L (140-400) K/mcL Neutrophils # 1.9 (1.6-8.9) K/mcL BMP 10/18/17 05:13 Sodium 137 Potassium 4.3 Chloride 109 H Carbon Dioxide 25 BUN 6 Creatinine 0.45 L Glucose 112 H Calcium 8.0 L Liver Function 10/18/17 Range/Units 05:13 Total Bilirubin 4.9 H (0.3-1.0) mg/dL AST 262 H (13-39) Units/L ALT 136 H (7-52) Units/L Alkaline Phosphatase 96 (34-104) Units/L Albumin 2.9 L (3.5-5.7) g/dL - ABG Interpretation ABG results: PT/INR, D-dimer PT 18.2 Seconds (9.4-12.1) H 10/18/17 05:13 Consult Discharge Plan - Plan Referrals: NONE,PCP [Primary Care Provider] -
[2017-10-18] MEDS ORDERED: Propofol 500 MG/50 ML INFUS..BTL ONE (13:25)
[2017-10-18] MEDS ORDERED: Lidocaine -MPF 2% 2 ML VIAL ONE (13:27)
[2017-10-18] MEDS ORDERED: 0.9 % Sodium Chloride 500 ML IVC SCH (14:00)
--- NOTE | 2017-10-18 14:31 | Anesthesia Progress Note ---
Date of Encounter: 10/18/17 Time of Encounter: 14:30 Anesthesia Note - Note Note: 10/18/17 14:30 Patient for colonoscopy. Seen yesterday by DR Rocha for MAC for his EGD. No change in medical condition. Patient will be given MAC for his endoscopy
[2017-10-18 18:58] LABS: HCV Quant Interpretation DETECTED (Not Detected)
[2017-10-19 05:08] LABS: Basophils % 0.9 %; Eosinophils # 0.1 K/mcL (0.0-0.6); Eosinophils % 3.2 %; Hematocrit 36.8 % (37.5-50.1); Hemoglobin 12.1 g/dL (12.9-16.9); Immature Granulocytes % 0.3 % (0-4); Immature Platelets 10.4 % (1.1-6.1); Lymphocytes # 1.5 K/mcL (0.6-4.6); Lymphocytes % 44.1 %; Mean Corpuscular HGB Conc 32.9 g/dL (31.6-35.5); Mean Corpuscular Volume 91.1 fL (83.0-100.0); Mean Platelet Volume 12.3 fL (9.4-12.4); Monocytes # 0.3 K/mcL (0.0-1.3); Monocytes % 9.7 %; Neutrophils # 1.5 K/mcL (1.6-8.9); Red Blood Count 4.04 M/mcL (4.19-5.50); Red Cell Distribution Width 15.8 % (11.5-14.5); Segmented Neutrophils % 41.8 %
[2017-10-19 05:11] LABS: Platelet Count 52 K/mcL (140-400)
[2017-10-19 05:26] LABS: BUN/Creatinine Ratio 15 (6-26); Blood Urea Nitrogen 7 mg/dL (6-20); Calcium 7.9 mg/dL (8.6-10.3); Carbon Dioxide 26 mEq/L (23-29); Chloride 111 mEq/L (98-107); Glucose 96 mg/dL (70-105); Osmolality,Calculated 286 (280-300); Potassium 4.2 mEq/L (3.5-5.1); Sodium 139 mEq/L (136-145); eGFR For African Americans > 60 (> 60); eGFR For Non-African Americans > 60 (> 60)
[2017-10-19] MEDS: Pantoprazole 40 MG VIAL IVP SCH (05:39)
--- NOTE | 2017-10-19 08:22 | Gastroenterology Progress Note ---
<Christian Mcleod - Last Filed: 10/19/17 11:41> Date of Encounter: 10/19/17 Time of Encounter: 08:20 - Assessment and plan (1) GI bleed Status: Acute Assessment and plan: Patient with hematemesis and hematochezia HGB stable, vitals stable Vitamin K given due to INR 1.8 Continue Protonix BID EGD today revealed Grade 1 esophageal varices and portal hypertensive gastropathy Colonoscopy revealed polyps, pathology results pending Patient is stable form a GI standpoint Follow up with GI in clinic in 3 weeks Qualifiers: GI bleed type/associated pathology: unspecified gastrointestinal hemorrhage type Qualified Code(s): K92.2 - Gastrointestinal hemorrhage, unspecified (2) Cholecystitis Status: Acute Assessment and plan: CT Abdomen/Pelvis revealed findings suggesting acute cholecystitis, nonspecific abdominal and pelvic ascites may be reactive, and splenomegaly. Abdomen Ultrasound revealed nonspecific findings of diffuse gallbladder wall thickening which can be seen with cholecystitis. Nonspecific common duct dilatation without choledocholithiasis evident sonographically. Correlate with liver function tests. HIDA scan was nondiagnostic. Bilirubin, LFTs elevated, positive De La O's sign Surgery signed off (3) Thrombocytopenia Status: Acute Assessment and plan: Consistent with splenomegaly seen on CT imaging Continue to monitor (4) Hyperammonemia Status: Acute Assessment and plan: Ammonia level elevated at 119 Patient is A&O x3 He was given Lactulose with goal of 3-4 bowel movements a day. 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 Patient reports mild abd discomfort and denies any new c/o. Patient is tolerating PO intake and is eager to go home. - Constitutional Vitals: Temp Pulse Resp BP Pulse Ox 98.0 F 61 16 105/55 96 10/19/17 07:16 10/19/17 07:16 10/19/17 07:16 10/19/17 07:16 10/19/17 07:16 General appearance: Present: cooperative, A&O X 3, no acute distress, obese, answers questions appropriately - Head Head exam: Present: atraumatic, normocephalic - Eye Eye exam: Present: normal appearance, sclera anicteric - Neck Neck exam general surgery: Present: normal inspection, trachea midline - Respiratory Respiratory exam: Present: CTAB - Cardiovascular Cardiovascular exam: Present: RRR, +S1, +S2 - GI/Abdominal GI/Abdominal exam: Present: normal bowel sounds, soft, no peritoneal signs. Absent: distended, tenderness - Rectal Rectal exam: Present: deferred - Extremities Exam Extremities exam: Present: warm. Absent: pedal edema - Neurological Exam Neurological exam: Present: oriented X3, no focal deficits - Psychiatric Psychiatric exam: Present: normal affect, normal mood - Skin Skin exam: Present: dry, intact, normal color (multiple tattoos), warm Results - Labs CBC & Chem 7: 10/19/17 04:41 10/19/17 04:41 Labs: Last Result Calcium 7.9 mg/dL (8.6-10.3) L 10/19/17 04:41 Troponin I < 0.03 ng/mL (< 0.04) 10/16/17 16:59 C-Reactive Protein 11 mg/L (Less than 10) H 10/16/17 16:59 Urine Opiates Screen Negative ng/mL (Jmptmf=270) 10/17/17 05:36 Entire Visit Hgb 12.1 g/dL (12.9-16.9) L 10/19/17 04:41 Hct 36.8 % (37.5-50.1) L 10/19/17 04:41 PT 18.2 Seconds (9.4-12.1) H 10/18/17 05:13 Total Bilirubin 4.9 mg/dL (0.3-1.0) H 10/18/17 05:13 AST 262 Units/L (13-39) H 10/18/17 05:13 ALT 136 Units/L (7-52) H 10/18/17 05:13 Ammonia 119 mcmol/L (16-53) H 10/16/17 17:48 Lipase 17 Units/L (11-82) 10/16/17 16:59 Acetaminophen < 10 mcg/mL (10-20) L 10/16/17 16:59 - ABG ABG results: PT/INR, D-dimer PT 18.2 Seconds (9.4-12.1) H 10/18/17 05:13 Consult Discharge Plan - Plan Instructions: Acute Abdominal Pain (DC) Referrals: Naveed López MD [Partnered Physician] - 10/24/17 2:45 pm Prescriptions: Lactulose 20 gm PO BID #60 udc Propranolol [Inderal] 20 mg PO BID #60 tablet <Yong Garcia - Last Filed: 11/07/17 05:10> Date of Encounter: 10/19/17 - Time Spent With Patient Total time spent is greater than 50% in coordination of care (as documented) at patient's floor/unit and/or counseling patient: - Constitutional Vitals: Temp Pulse Resp BP Pulse Ox 98.3 F 56 16 104/61 98 10/19/17 10:46 10/19/17 10:46 10/19/17 10:46 10/19/17 10:46 10/19/17 10:46 Results - Labs CBC & Chem 7: 10/19/17 04:41 10/19/17 04:41 Labs: Last Result Calcium 7.9 mg/dL (8.6-10.3) L 10/19/17 04:41 Troponin I < 0.03 ng/mL (< 0.04) 10/16/17 16:59 C-Reactive Protein 11 mg/L (Less than 10) H 10/16/17 16:59 Urine Opiates Screen Negative ng/mL (Jxlexb=001) 10/17/17 05:36 HCV RNA (PCR) IUs/ml 240,000 IU/mL 10/17/17 00:58 HCV RNA PCR log IUs/ml 5.4 log IU 10/17/17 00:58 HCV RNA (PCR) Interp DETECTED (Not Detected) A 10/17/17 00:58 Entire Visit Hgb 12.1 g/dL (12.9-16.9) L 10/19/17 04:41 Hct 36.8 % (37.5-50.1) L 10/19/17 04:41 PT 18.2 Seconds (9.4-12.1) H 10/18/17 05:13 Total Bilirubin 4.9 mg/dL (0.3-1.0) H 10/18/17 05:13 AST 262 Units/L (13-39) H 10/18/17 05:13 ALT 136 Units/L (7-52) H 10/18/17 05:13 Ammonia 119 mcmol/L (16-53) H 10/16/17 17:48 Lipase 17 Units/L (11-82) 10/16/17 16:59 Acetaminophen < 10 mcg/mL (10-20) L 10/16/17 16:59 - ABG ABG results: PT/INR, D-dimer PT 18.2 Seconds (9.4-12.1) H 10/18/17 05:13 - Attending Attestation Samson came in with hematochezia and hemetemesis. Plan EGD and colonoscopy and then follow up as outpatient. I examined this patient and my medical decision-making was reviewed with the Resident Physician. I agree with the documented findings, disposition and treatment plan as described except to the extent set forth below.
[2017-10-19] MEDS: *HR* Buprenorphine HCl 8 MG TAB.SUBL SL SCH (09:07)
[2017-10-19] MEDS: Lactulose Oral Soln 20 GM/30 ML UDC PO SCH (09:07)
[2017-10-19 10:52] VITALS: BP 104/61
--- NOTE | 2017-10-19 11:40 | Discharge Summary ---
- NOTES TO OUTPATIENT PROVIDER Notes to Outpatient Provider: Patient was admited for RUQ pain, suspected cholecystitis, GI bleed, hyperammonemia, suspectd UTI. He has no PCP and has been scheduled to follow up here at [place] with gastroenterology and a new PCP will be assigned Orders not resulted at time of discharge: Pending orders 10/18/17 IR US abdomen limited [IR] Routine 10/18/17 14:57 Surgical Pathology [PTH] Routine Date of Encounter: 10/19/17 Time of Encounter: 11:39 - Discharge Diagnosis (1) UTI (urinary tract infection) Priority: Primary Status: Ruled-out Comments: Ruled out Culture was negative with no growth. The patient was initially given IV antibiotics but discontinued after urine culture was finalized. Qualifiers: Urinary tract infection type: acute cystitis Hematuria presence: without hematuria Qualified Code(s): N30.00 - Acute cystitis without hematuria (2) Cholecystitis Priority: Primary Status: Acute Comments: Suspected Right Upper Quadrant Abdominal Pain and CAT Scan and Gallbladder Ultrasound Findings of Acute Cholecystitis without Cholelithiasis. On Exam Was Inconclusive. Surgery Was Consulted and Recommended No Intervention. Antibiotics Were Discontinued. It Is Likely That the Patient's Abdominal Pain Is Due To Hypersplenism and Chronic Hepatitis. (3) Acute abdominal pain Priority: Primary Status: Acute Comments: Resolved. (4) Hyperammonemia Priority: Primary Status: Acute Comments: ammonia on presentation >100. Patient's mental status is stable and he is alert and oriented 3. The patient educated on the importance of having bowel movements daily due to his diagnosis of cirrhosis. He is discharged on lactulose twice a day when necessary. (5) Thrombocytopenia Priority: Primary Status: Chronic Comments: Presenting platelet count 54,000. 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 Educated to avoid contact sports or sharp objects (6) Upper GI bleed Priority: Primary Status: Suspected Comments: Ruled out Patient reported a history of hematemesis, which is no longer ongoing. He was hemodynamically stable, hemoglobin was between 12 and 13. EGD done 10/17 shows esophageal varices and portal gastropathy. Ascitic fluid not sginificant-could not be tapped by IR Colonosocpy showed polpys that were excised for biopsy (7) History of hepatitis C Priority: Secondary Status: Chronic Comments: chronic, follow up with GI (8) Elevated INR Priority: Primary Status: Acute Comments: Due to liver disease INR ranged from 1.7 to 1.8 during admission (9) Varices, esophageal Priority: Secondary Status: Chronic Comments: as in GIB Qualifiers: Esophageal varices type: secondary Esophageal varices bleeding: with bleeding Qualified Code(s): I85.11 - Secondary esophageal varices with bleeding (10) Opiate dependence Priority: Secondary Status: Chronic Comments: continue subutex Qualifiers: Substance use status: uncomplicated Qualified Code(s): F11.20 - Opioid dependence, uncomplicated Hospital course: Mr. Mitchell is a 47 year old male with chronic hepatitis C, and opiate dependence admitted for abdominal pain See individual diagnoses for details 3 mins counselling on tobacco cessation therapy done Discharge discussed with: patient, nurse Time spent discussing smoking cessation with patient: 3 to 10 minutes - Time Spent with Patient Total time spent providing and/or coordinating discharge services: Greater than 30 minutes - Discharge Medications Prescriptions: Lactulose 20 gm PO BID #60 udc Propranolol [Inderal] 20 mg PO BID #60 tablet Home Medications: Buprenorphine HCl [Subutex] 8 mg SL BID 10/26/16 [History] Capsaicin 0.025% [Trixaicin] 1 appl TP QID PRN tube 10/19/17 [Rx] Lactulose 20 gm PO BID #60 udc 10/19/17 [Rx] Propranolol [Inderal] 20 mg PO BID #60 tablet 10/19/17 [Rx] Allergies/Adverse Reactions: 3 Allergy/AdvReac Type Severity Reaction Status Date / Time No Known Allergies Allergy Verified 06/26/15 16:04 Date of admission: 10/16/17 22:23 Primary care physician: PCP NONE Consults: 10/16/17 23:17 Consult to Gastroenterology [CONS] Routine Consulting Provider: [facility] [place] Reason for Consult: Diagnosis of cirrhosis, lost to follow-up, eval for esophageal varices Call Completed: No 10/17/17 16:26 Consult to Interventional Radiology [CONS] Routine Consulting Provider: Radiology [facility] Reason for Consult: Paracentensis Call Completed: No Discharging clinician: Anthony Jones Anticipated date of discharge: 10/19/17 - Constitutional Vitals: Temp Pulse Resp BP Pulse Ox 98.3 F 56 16 104/61 98 10/19/17 10:46 10/19/17 10:46 10/19/17 10:46 10/19/17 10:46 10/19/17 10:46 General appearance: Present: cooperative, A&O X 3, no acute distress, answers questions appropriately - Head Head exam: Present: atraumatic - Eye Eye exam: Present: PERRL, scleral icterus - ENT ENT exam: Present: mucous membranes moist - Neck Neck exam general surgery: Present: supple, trachea midline. Absent: lymphadenopathy - Respiratory Respiratory exam: Present: CTAB. Absent: accessory muscle use, rales, rhonchi, wheezes - Cardiovascular Cardiovascular exam: Present: RRR, +S1, +S2. Absent: diastolic murmur, gallop, rubs, systolic murmur - GI/Abdominal GI/Abdominal exam: Present: normal bowel sounds, soft, no peritoneal signs. Absent: distended, tenderness - Extremities Exam Extremities exam: Present: warm, radial pulses palpable and symmetrical. Absent : calf tenderness, cyanotic, pedal edema - Neurological Exam Neurological exam: Present: alert, CN II-XII intact, oriented X3, no focal deficits. Absent: pronater drift, facial droop, speech deficit - Skin Skin exam: Present: dry, intact - Patient Status Disposition: Home, Self-Care Condition: Good Functional capacity at discharge: independent ambulation Overall status at discharge: patient is progressing back to baseline - Discharge Instructions Instructions: Acute Abdominal Pain (DC) Follow Up With: Naveed López MD [Partnered Physician] - 10/24/17 2:45 pm - Diet and Activity Activity: resume usual activities as tolerated
== END 2017-10-19 13:11 | disposition home or self-care (01) | DRG 445 ==
LOC: 3ANU 16:17 → EMEROO 16:17 → OBSVTOIN 22:23 → 3ANU 23:08
PROVIDERS: ADMIT Family Medicine; ATTEND Internal Medicine

== ENCOUNTER 2018-09-30 20:17 | Inpatient (IN) ==
[2018-09-30 21:55] LABS: Basophils % 0.5 %; Immature Granulocytes % 0.2 % (0-4)
[2018-09-30 21:57] LABS: Eosinophils # 0.2 K/mcL (0.0-0.6); Eosinophils % 3.8 %; Hematocrit 26.6 % (37.5-50.1); Hemoglobin 9.2 g/dL (12.9-16.9); Immature Platelets 7.7 % (1.1-6.1); Lymphocytes # 1.4 K/mcL (0.6-4.6); Lymphocytes % 25.4 %; Mean Corpuscular HGB Conc 34.6 g/dL (31.6-35.5); Mean Corpuscular Hemoglobin 32.4 pg (28.0-33.3); Mean Corpuscular Volume 93.7 fL (83.0-100.0); Mean Platelet Volume 12.1 fL (9.4-12.4); Monocytes # 0.7 K/mcL (0.0-1.3); Monocytes % 12.9 %; Neutrophils # 3.2 K/mcL (1.6-8.9); Red Blood Count 2.84 M/mcL (4.19-5.50); Red Cell Distribution Width 15.8 % (11.5-14.5); Segmented Neutrophils % 57.2 %
[2018-09-30 22:04] LABS: Prothrombin Time 22.2 Seconds (9.4-12.1)
[2018-09-30 22:06] LABS: Platelet Count 47 K/mcL (140-400)
[2018-09-30 22:15] LABS: Alanine Aminotransferase 48 Units/L (7-52); Albumin 2.7 g/dL (3.5-5.7); Albumin/Globulin Ratio 1.4 (1.1-2.2); Alkaline Phosphatase 62 Units/L (34-104); Aspartate Amino Transferase 109 Units/L (13-39); BUN/Creatinine Ratio 26 (6-26); Bilirubin,Direct 3.8 mg/dL (0.0-0.2); Bilirubin,Indirect 3.3 mg/dL (0.0-1.2); Bilirubin,Total 7.1 mg/dL (0.3-1.0); Blood Urea Nitrogen 31 mg/dL (6-20); Calcium 7.9 mg/dL (8.6-10.3); Carbon Dioxide 26 mEq/L (23-29); Chloride 102 mEq/L (98-107); Globulin 1.9 g/dL (2.4-3.5); Glucose 123 mg/dL (70-105); Osmolality,Calculated 282 (280-300); Potassium 4.4 mEq/L (3.5-5.1); Sodium 132 mEq/L (136-145); Total Protein 4.6 g/dL (6.4-8.9); eGFR For Non-African Americans > 60 (> 60)
--- NOTE | 2018-09-30 22:44 | Emergency Department Note ---
Disposition Clinical Impression: Anemia due to GI blood loss, Thrombocytopenia, Liver failure, Elevated INR, Anasarca, Hyperbilirubinemia, History of hepatitis C Disposition: Admitted As Inpatient Condition: Fair Time of Disposition: 00:30 SOB HPI - General Chief Complaint: ED Shortness of Breath/Dyspnea Stated Complaint: Full of fluid, ARIELA Time Seen by Provider: 09/30/18 21:17 Source: patient, family () Limitations: no limitations Nursing Notes Reviewed: Yes Vital Signs Reviewed: Yes - History of Present Illness 48-year-old male history of heart failure and liver cirrhosis secondary to hepatitis C presents the emergency department with shortness of breath and abdominal distention. Patient follows with sap bw bi developer Dr. Trinidad as well as [facility]. Recently referred up there to be placed on the liver transplant list. Reports being admitted at [facility] from September 05 the requiring diuresis. Since then he continues to accumulate fluid which is mostly swelling to legs and extremities. He admits to weight gain in swelling in his legs. 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 She did not want to wait for admission and decided to go home. Patient presents here requesting to be admitted for diuresis. He also reports blood in his stool and feeling more tired than usual. does report he is slightly more confusing usual. Denies any fevers. No significant abdominal pain. Denies any nausea or vomiting. Denies any cough congestion or chest pain. has noticed that he appears more jaundiced. He is scheduled to follow up with Dr. Trinidad tomorrow. - Related Data Home Medications Medication Instructions Recorded Confirmed RX: Albuterol Sulfate [Proair Hfa] 2 puff IH Q4H PRN 01/16/18 08/22/18 RX: Calcipotriene [Dovonex] 60 gm TP BID 01/16/18 08/22/18 RX: Fluticasone/Salmeterol [Advair 1 puff IH BID 01/16/18 08/22/18 250-50 Diskus] RX: Tiotropium [Spiriva] 18 mcg IH 0700 01/16/18 08/22/18 RX: Megestrol Acetate [Megace] 40 mg PO BID 06/04/18 08/22/18 RX: Omeprazole [PriLOSEC] 40 mg PO BID 06/04/18 08/22/18 Furosemide [Lasix] 60 mg PO BID 08/22/18 08/22/18 Lactulose [Kristalose] 20 gm PO DAILY 08/22/18 08/22/18 RX: Lactulose 20 gm PO DAILY 08/22/18 08/22/18 RX: Propranolol HCl 20 mg PO BID 08/22/18 08/22/18 RX: Spironolactone [Aldactone] 150 mg PO BID 08/22/18 08/22/18 RX: metOLazone [Metolazone] 10 mg PO DAILY 08/22/18 08/22/18 RX: traZODone [TraZODone] 50 mg PO HS 08/22/18 08/22/18 Rifaximin [Xifaxan] 550 mg PO BID 08/22/18 08/22/18 Previous Rx's Medication Instructions Recorded Azithromycin [Zithromax] 250 mg PO DAILY #6 tablet 08/22/18 Allergies Allergy/AdvReac Type Severity Reaction Status Date / Time No Known Allergies Allergy Verified 08/22/18 19:34 All systems ED: reviewed and negative except as stated. Review of Systems: As Per HPI Constitutional: Reports: weakness, weight change. Denies: fever, chills ENT ED: Denies: congestion Cardiovascular: Denies: chest pain Respiratory: Reports: dyspnea. Denies: cough Gastrointestinal: Reports: hematochezia. Denies: abdominal pain, nausea, vomiting, hematemesis, melena Musculoskeletal: Denies: back pain Neurological: Reports: weakness. Denies: headache Endocrine: Reports: fatigue Past Medical History - Past Medical History Attestation: Yes The following information was validated with the patient. Source: patient, obtained from family Medical history: Reports: cirrhosis, CHF, COPD, hepatitis, hypertension, kidney stones, liver disease Surgical history: Reports: no surgical history Psychiatric history: Reports: no psych history - Social History Smoking Status: Current every day smoker Smokeless Tobacco Status: No Alcohol use: Reports: none Drug use: Reports: none Physical Exam - General Limitations: no limitations General appearance: alert, in no apparent distress, obese, other (ill appearing) - Head Head exam: atraumatic, normocephalic, normal inspection - Eye Eye exam: Present: PERRL, EOMI, scleral icterus - ENT ENT exam: normal exam, normal oropharynx, mucous membranes moist - Neck Neck exam: Present: normal inspection, full ROM, trachea midline - Chest Chest inspection: Present: normal inspection, symmetric chest wall rise. Absent: tenderness - Respiratory Respiratory exam: Present: normal lung sounds bilaterally. Absent: respiratory distress, wheezes - Cardiovascular Cardiovascular exam: Present: regular rate, normal rhythm, normal heart sounds. Absent: systolic murmur, diastolic murmur - Abdominal Exam Abdominal exam: Present: Non-Tender, distention, other (Pitting edema/anasarca). Absent: tenderness, guarding, rebound, rigidity, ascites Abdominal tenderness: Present: diffuse - Rectal Exam Rectal exam: Present: normal rectal tone, heme (+) stool - Male exam: Present: normal inspection, circumcised - Extremities Exam Extremities exam: Present: normal inspection, full ROM, pedal edema (+2). Absent: tenderness - Neurological Exam Neurological exam: Present: alert, oriented X3 - Psychiatric Psychiatric exam: Present: normal affect, normal mood - Skin Skin exam: Present: warm, dry, intact, other (jaundice) Course Course Narrative: Patient presents with dyspnea likely secondary to abdominal distention from his cirrhosis. Denies any fevers or abdominal pain. States he was supposed to be admitted to [facility] for diuresis but refused to wait for a bed. Patient presents here for further evaluation. On exam he appears Eddy this. This is noted to be worsen usual. He has a gastroenterologists here and has been referred to [facility]. Will check some basic labs in consider possible transfer. - Reevaluation(s) Reevaluation #1: Review of his labs show worsening than his baseline including worsening of his bilirubin, INR and platelets. His hemoglobin has dropped in shows that he is having a possible G.I. bleed anemia as stool hemoccult is positive. His calculated MELD score 26. This shows a close to 20% three-month mortality. This was discussed with the patient and significant other multiple times in the room. He understands that by attempting to admit the patient here at [facility] we will only be providing symptomatic relief and not treating the problem. He understands this and wishes to stay. Otherwise he refuses to be transferred to [facility]. CT scan reveals anasarca and no significant acidic fluid. There is cholelithiasis on the exam but no duct dilatation. He specifically does not have any tenderness to the right upper quadrant. Will attempt to admit the patient for his worsening liver cirrhosis, anasarca, hyperbilirubinemia and G.I. bleed anemia. Time: 23:49 - Consultations Consultation #1: Spoke with on-call hospitalist millicent Dalton to admit for liver cirrhosis, liver failure, hyperbilirubinemia, elevated INR, GI bleed anemia. No further orders at this time. Will plan to have gastroenterology evaluate the patient tomorrow morning. Time: 00:30 Vital Signs Temperature 98.8 F 09/30/18 20:33 Pulse Rate 93 09/30/18 20:33 Respiratory Rate 22 09/30/18 20:33 Blood Pressure 120/69 09/30/18 20:33 O2 Sat by Pulse Oximetry 96 09/30/18 20:33 Temperature 98.8 F 09/30/18 20:33 Pulse Rate 86 09/30/18 22:55 Respiratory Rate 20 09/30/18 22:55 Blood Pressure 129/86 09/30/18 22:55 O2 Sat by Pulse Oximetry 97 09/30/18 22:55 Oxygen Delivery Oxygen Delivery Nasal Cannula Shortness of Breath/Dyspnea - MDM Narrative Medical decision making narrative: Patient was discussed with my attending physician who agrees with ED management and final disposition. They independently evaluated the patient. Please refer to their attestation to this encounter for additional information. This note was generated by [employer] voice recognition software and as a result grammatical or spelling errors may occur using this program. - Medical Records Medical records reviewed: Yes I reviewed the patient's medical records. - Lab Data Lab results reviewed: Yes I reviewed the patient's lab results. Result diagrams: 10/01/18 01:48 10/01/18 01:48 Lab Results 09/30/18 09/30/18 09/30/18 Range/Units 21:42 21:42 21:42 WBC 5.5 (4.3-11.1) K/mcL RBC 2.84 L (4.19-5.50) M/mcL Hgb 9.2 L (12.9-16.9) g/dL Hct 26.6 L (37.5-50.1) % MCV 93.7 (83.0-100.0) fL MCH 32.4 (28.0-33.3) pg MCHC 34.6 (31.6-35.5) g/dL RDW 15.8 H (11.5-14.5) % Plt Count 47 L (140-400) K/mcL MPV 12.1 (9.4-12.4) fL Immature Gran % 0.2 (0-4) % Seg Neutrophils % 57.2 % Lymphocytes % 25.4 % Monocytes % 12.9 % Eosinophils % 3.8 % Basophils % 0.5 % Neutrophils # 3.2 (1.6-8.9) K/mcL Lymphocytes # 1.4 (0.6-4.6) K/mcL Monocytes # 0.7 (0.0-1.3) K/mcL Eosinophils # 0.2 (0.0-0.6) K/mcL Basophils # 0.0 (0.0-0.2) K/mcL Immature Plt Fraction 7.7 H (1.1-6.1) % PT (9.4-12.1) Seconds INR Sodium 132 L (136-145) mEq/L Potassium 4.4 (3.5-5.1) mEq/L Chloride 102 (98-107) mEq/L Carbon Dioxide 26 (23-29) mEq/L BUN 31 H (6-20) mg/dL Creatinine 1.17 (0.70-1.30) mg/dL Est GFR ( Amer) > 60 (> 60) Est GFR (Non-Af Amer) > 60 (> 60) BUN/Creatinine Ratio 26 (6-26) Glucose 123 H (70-105) mg/dL Calculated Osmolality 282 (280-300) Calcium 7.9 L (8.6-10.3) mg/dL Total Bilirubin 7.1 H (0.3-1.0) mg/dL Direct Bilirubin 3.8 H (0.0-0.2) mg/dL Indirect Bilirubin 3.3 H (0.0-1.2) mg/dL AST 109 H (13-39) Units/L ALT 48 (7-52) Units/L Alkaline Phosphatase 62 (34-104) Units/L B-Natriuretic Peptide 116 H (Less than 100) pg/mL Serum Total Protein 4.6 L (6.4-8.9) g/dL Albumin 2.7 L (3.5-5.7) g/dL Globulin 1.9 L (2.4-3.5) g/dL Albumin/Globulin Ratio 1.4 (1.1-2.2) Stool Occult Bld Scrn (Negative) 09/30/18 09/30/18 Range/Units 21:42 22:40 WBC (4.3-11.1) K/mcL RBC (4.19-5.50) M/mcL Hgb (12.9-16.9) g/dL Hct (37.5-50.1) % MCV (83.0-100.0) fL MCH (28.0-33.3) pg MCHC (31.6-35.5) g/dL RDW (11.5-14.5) % Plt Count (140-400) K/mcL MPV (9.4-12.4) fL Immature Gran % (0-4) % Seg Neutrophils % % Lymphocytes % % Monocytes % % Eosinophils % % Basophils % % Neutrophils # (1.6-8.9) K/mcL Lymphocytes # (0.6-4.6) K/mcL Monocytes # (0.0-1.3) K/mcL Eosinophils # (0.0-0.6) K/mcL Basophils # (0.0-0.2) K/mcL Immature Plt Fraction (1.1-6.1) % PT 22.2 H (9.4-12.1) Seconds INR 2.0 Sodium (136-145) mEq/L Potassium (3.5-5.1) mEq/L Chloride (98-107) mEq/L Carbon Dioxide (23-29) mEq/L BUN (6-20) mg/dL Creatinine (0.70-1.30) mg/dL Est GFR ( Amer) (> 60) Est GFR (Non-Af Amer) (> 60) BUN/Creatinine Ratio (6-26) Glucose (70-105) mg/dL Calculated Osmolality (280-300) Calcium (8.6-10.3) mg/dL Total Bilirubin (0.3-1.0) mg/dL Direct Bilirubin (0.0-0.2) mg/dL Indirect Bilirubin (0.0-1.2) mg/dL AST (13-39) Units/L ALT (7-52) Units/L Alkaline Phosphatase (34-104) Units/L B-Natriuretic Peptide (Less than 100) pg/mL Serum Total Protein (6.4-8.9) g/dL Albumin (3.5-5.7) g/dL Globulin (2.4-3.5) g/dL Albumin/Globulin Ratio (1.1-2.2) Stool Occult Bld Scrn Positive A (Negative) - Radiology Data Radiology results reviewed: Yes I reviewed the patient's radiology results. Chest X-Ray 09/30/18 21:34 IMPRESSION: Minimal lateral right basilar atelectasis. Lungs are otherwise clear. 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 Cholelithiasis; acute cholecystitis is a consideration. Nonobstructing calculus upper pole left kidney is unchanged. No focal bowel obstruction is evident. D/ / Checo Bennett / Checo Bennett Interpreting Provider: Checo Bennett - EKG Data EKG attestation: Yes I reviewed and interpreted this EKG. EKG results narrative: EKG performed 2206 normal sinus rhythm 84 beats per minute, Q waves in inferior leads with low-voltage and good R wave progression. No ST elevation or depression. Compared to prior EKG performed 07/03/2018 was similar consistent findings. No acute ischemic changes. Attestation Statement - Attestation Attestation: Resident Attestation: I examined this patient and my medical decision making was reviewed with the Resident Physician. I agree with the documented findings, disposition and treatment plan as described except to the extent set forth below. We independently had [id number] contact with the patient. Patient presenting to the hospital with a known significant history of end-stage liver disease. Patient was seen at [facility] today and had been recommended to go to their emergency department for admission. Patient did not want to wait in the emergency department for several days before getting of bed. Patient states that he believes his issue is related to diuresis. Patient overall has si gnificant swelling throughout the lower extremities into the abdomen. Bedside ultrasound performed by me does not show any ascites fluid. Patient has not undergone paracentesis in the past. Overall the patient will undergo further evaluation for his liver as well as concern for CHF. Patient was found to have significantly worsening end-stage liver disease blood work including thrombocytopenia, elevated INR, significantly elevated bilirubin. At this time the patient was notified of his worsening liver function. We did recommend transfer to [facility]. Patient is adamant that he will not at [facility] today. Patient understands that we can provide diuresis but no other definitive management. Patient states he understands the risks associated with this. Patient understands the capabilities of this hospital and what their limited to. Despite these limitations, the patient is adamant about admission here. If patient is unable to be admitted here due to concern from the hospitalist, the patient understands that the other option is transfer to another facility or leaving AGAINST MEDICAL ADVICE. Patient states that she cannot be admitted here he would just leave AGAINST MEDICAL ADVICE. This time I do believe bring the patient in for diuresis given his significant symptoms related to anasarca would be more beneficial than AMA. We will discuss with the hospitalist. Patient's abdomen is soft nontender to palpation without guarding or rebound. Patient does have significant swelling and +1 pitting edema through the umbilicus. Patient does not have right upper quadrant pain or tenderness.
[2018-09-30] MEDS ORDERED: Furosemide 40 MG/4 ML VIAL IVP ONE (23:03)
[2018-10-01] MEDS ORDERED: Furosemide 40 MG/4 ML VIAL IVP ONE (00:29)
[2018-10-01] MEDS ORDERED: OXYCODONE Oral CONC 10 MG/0.5 ML ORAL.SYG SL PRN (01:32)
[2018-10-01] MEDS ORDERED: Naloxone 0.4 MG/ML INJ IVP PRN (01:32)
[2018-10-01] MEDS ORDERED: Ondansetron 4 MG/2 ML VIAL IVP PRN (01:32)
[2018-10-01 02:06] LABS: Eosinophils % 4.3 %; Immature Granulocytes % 0.2 % (0-4)
[2018-10-01 02:08] LABS: Basophils % 0.6 %; Eosinophils # 0.2 K/mcL (0.0-0.6); Hemoglobin 9.2 g/dL (12.9-16.9); Immature Platelets 6.3 % (1.1-6.1); Lymphocytes # 1.5 K/mcL (0.6-4.6); Lymphocytes % 28.6 %; Mean Corpuscular HGB Conc 35.4 g/dL (31.6-35.5); Mean Corpuscular Hemoglobin 33.1 pg (28.0-33.3); Mean Corpuscular Volume 93.5 fL (83.0-100.0); Mean Platelet Volume 12.7 fL (9.4-12.4); Monocytes # 0.7 K/mcL (0.0-1.3); Monocytes % 12.2 %; Neutrophils # 2.9 K/mcL (1.6-8.9); Red Blood Count 2.78 M/mcL (4.19-5.50); Red Cell Distribution Width 15.8 % (11.5-14.5); Segmented Neutrophils % 54.1 %
[2018-10-01 02:09] LABS: Platelet Count 45 K/mcL (140-400)
[2018-10-01 02:14] LABS: INR 1.9; Prothrombin Time 21.4 Seconds (9.4-12.1)
[2018-10-01 02:21] LABS: Albumin 2.7 g/dL (3.5-5.7); Albumin/Globulin Ratio 1.4 (1.1-2.2); Bilirubin,Direct 3.5 mg/dL (0.0-0.2); Bilirubin,Indirect 3.3 mg/dL (0.0-1.2); Bilirubin,Total 6.8 mg/dL (0.3-1.0); Globulin 1.9 g/dL (2.4-3.5); Total Protein 4.6 g/dL (6.4-8.9)
[2018-10-01 02:22] LABS: BUN/Creatinine Ratio 27 (6-26); Blood Urea Nitrogen 30 mg/dL (6-20); Calcium 7.8 mg/dL (8.6-10.3); Carbon Dioxide 24 mEq/L (23-29); Chloride 102 mEq/L (98-107); Glucose 103 mg/dL (70-105); Magnesium 2.1 mg/dL (1.6-2.6); Osmolality,Calculated 282 (280-300); Potassium 4.1 mEq/L (3.5-5.1); Sodium 133 mEq/L (136-145); eGFR For Non-African Americans > 60 (> 60)
--- NOTE | 2018-10-01 04:53 | Internal Med History&Physical ---
Date of Encounter: 10/01/18 Time of Encounter: 04:51 Internal Medicine - H&P: HPI Chief complaint: Swelling Admitted From: Emergency Dept Plans for Post Hospital Care: Home History of present illness: Mr. Mitchell is a 48 year old male with history of chronic hepatitis C and cirrhosis presents with diffuse swelling. 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 It was recommended that the patient be admitted at [facility] however refused and presented to our emergency department. He states he also follows with tool builder here and wanted to be closer to home. He reports increased abdominal swelling and lower shortness swelling. He reports mild shortness of breath is at his baseline. He denies fever and chills. He reports noticing dark red blood in his stool. Denies any vomiting or hematemesis. Discussed with patient who wishes to be full code. Past Med Surg Social Fam HX - Past Medical History Medical history: cirrhosis, CHF, COPD, hepatitis, hypertension, kidney stones, liver disease Additional medical history: Hepatitis C. Splenomegaly Psychiatric history: no psych history - Past Surgical History Surgical History: no surgical history Additional surgical history: BILAT TUBES IN EARS,COLONOSCOPY,EGD,ESOPHAGEAL VARICES WITH BANDING - Social History Smoking Status: Current every day smoker Packs per day: 1/ Smokeless Tobacco Status: No Alcohol use: none Drug use: none - Family History Brother Living Status: Still Living Hx Family Cardiac Disorders: Yes Hx Family Endocrine Disorder: Yes Father Living Status: Hx Family Cancer: Yes (Lung) Internal Medicine - H&P: Meds Albuterol Sulfate [Proair Hfa] 2 puff IH Q4H PRN 01/16/18 [History] Calcipotriene [Dovonex] 60 gm TP BID 01/16/18 [History] Fluticasone/Salmeterol [Advair 250-50 Diskus] 1 puff IH BID 01/16/18 [History] Tiotropium [Spiriva] 18 mcg IH 0700 01/16/18 [History] Megestrol Acetate [Megace] 40 mg PO BID 06/04/18 [History] Omeprazole [PriLOSEC] 40 mg PO BID 06/04/18 [History] Azithromycin [Zithromax] 250 mg PO DAILY #6 tablet 08/22/18 [Rx] Furosemide [Lasix] 60 mg PO BID 08/22/18 [History] Lactulose 20 gm PO DAILY 08/22/18 [History] Lactulose [Kristalose] 20 gm PO DAILY 08/22/18 [History] Propranolol HCl 20 mg PO BID 08/22/18 [History] Rifaximin [Xifaxan] 550 mg PO BID 08/22/18 [History] Spironolactone [Aldactone] 150 mg PO BID 08/22/18 [History] metOLazone [Metolazone] 10 mg PO DAILY 08/22/18 [History] traZODone [TraZODone] 50 mg PO HS 08/22/18 [History] Allergy/AdvReac Type Severity Reaction Status Date / Time No Known Allergies Allergy Verified 08/22/18 19:34 All Systems PM: A 10-system review of systems was performed and is negative for pertinent findings except as documented above in the HPI. Review of systems: 10 point review of systems was obtained and negative other than stated below: - Constitutional Constitutional: no chills, no fever(s) - Cardiovascular Cardiovascular ROS IM: no chest pain - Respiratory Respiratory: dyspnea - Gastrointestinal Gastrointestinal: abdominal pain, melena, nausea, no hematemesis, no vomiting - Constitutional Vitals: Temp Pulse Resp BP Pulse Ox 98.8 F 86 18 109/41 97 09/30/18 20:33 09/30/18 22:55 10/01/18 03:18 10/01/18 03:18 09/30/18 22:55 General appearance: Present: A&O X 3, no acute distress Exam: . - Head Head exam: Present: atraumatic, normal inspection, normocephalic - Eye Eye exam: Present: EOMI, PERRL, scleral icterus - ENT ENT exam: Present: mucous membranes moist, normal oropharynx - Neck Neck exam general surgery: Present: full ROM, supple. Absent: tenderness - Respiratory Respiratory exam: Present: CTAB. Absent: rales, rhonchi, wheezes - Cardiovascular Cardiovascular exam: Present: RRR. Absent: gallop, rubs, systolic murmur - GI/Abdominal GI/Abdominal exam: Present: distended, hypoactive bowel sounds, soft, tenderness (Mild, diffusely), no peritoneal signs. Absent: rigid Additional comments: Protuberant abdomen with no fluid wave appreciated - Extremities Exam Extremities exam: Present: pedal edema (3+ lower extremity bilaterally), warm. Absent: tenderness - Neurological Exam Neurological exam: Present: alert, CN II-XII intact, oriented X3, no focal deficits - Psychiatric Psychiatric exam: Present: depressed, normal affect - Skin Skin exam: Present: dry, intact, warm. Absent: normal color (Jaundice appreciated) Internal Med - H&P Results - Labs CBC & Chem 7: 10/01/18 01:48 10/01/18 01:48 Labs: Short CBC 09/30/18 10/01/18 Range/Units 21:42 01:48 WBC 5.5 5.3 (4.3-11.1) K/mcL Hgb 9.2 L 9.2 L (12.9-16.9) g/dL Hct 26.6 L 26.0 L (37.5-50.1) % Plt Count 47 L 45 L (140-400) K/mcL Neutrophils # 3.2 2.9 (1.6-8.9) K/mcL BMP 09/30/18 10/01/18 21:42 01:48 Sodium 132 L 133 L Potassium 4.4 4.1 Chloride 102 102 Carbon Dioxide 26 24 BUN 31 H 30 H Creatinine 1.17 1.10 Glucose 123 H 103 Calcium 7.9 L 7.8 L Liver Function 09/30/18 10/01/18 Range/Units 21:42 01:48 Total Bilirubin 7.1 H 6.8 H (0.3-1.0) mg/dL Direct Bilirubin 3.8 H 3.5 H (0.0-0.2) mg/dL AST 109 H 110 H (13-39) Units/L ALT 48 47 (7-52) Units/L Alkaline Phosphatase 62 60 (34-104) Units/L Albumin 2.7 L 2.7 L (3.5-5.7) g/dL - Impressions ITS Impressions Chest X-Ray 09/30/18 21:34 IMPRESSION: Minimal lateral right basilar atelectasis. Lungs are otherwise clear. 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 Cholelithiasis; acute cholecystitis is a consideration. Nonobstructing calculus upper pole left kidney is unchanged. No focal bowel obstruction is evident. D/ / Checo Bennett / Checo Bennett Interpreting Provider: Checo Bennett - Assessment and Plan (1) Cirrhosis Current Visit: No Status: Acute Assessment and plan: Patient has known decompensated cirrhosis secondary to chronic hepatitis C. Meld 24. Child Boateng class C. Having worsening anasarca. Ascites appreciated on CT abdomen and pelvis however on bedside ultrasound do not appreciate any ascites. Patient does have diffuse abdominal pain. Patient is not febrile and no leukocytosis so I feel SBP is less likely but will cover with Rocephin. Switch Lasix to IV formulation. Continue Aldactone. No evidence of hepatic encephalopathy, continue lactulose and rifaximin. Consult GI. Qualifiers: Hepatic cirrhosis type: unspecified hepatic cirrhosis Ascites presence: with ascites Qualified Code(s): K74.60 - Unspecified cirrhosis of liver; R18.8 - Other ascites (2) Anemia due to GI blood loss Current Visit: Yes Status: Acute Assessment and plan: Patient hemoglobin is 9.3 on presentation, baseline appears to be around 12. Having dark red and melanotic stools with Hemoccult positive stool. Concern for GI bleed. Hemodynamically stable. No evidence of active variceal bleed ho wever patient is at risk and has known varices, therefore will start octreotide infusion after 25 g bolus. Start Protonix 40 mg IV push twice a day. GI consult for possible endoscopy. Transfuse for hemoglobin less than 7. (3) Chronic hepatitis C Current Visit: No Status: Acute Assessment and plan: Resulting in cirrhosis as above. Follow-up with GI. Qualifiers: Hepatic coma status: without hepatic coma Qualified Code(s): B18.2 - Chronic viral hepatitis C (4) COPD (chronic obstructive pulmonary disease) Current Visit: Yes Status: Acute Assessment and plan: Stable. No evidence of exacerbation. When necessary bronchodilators. Qualifiers: COPD type: unspecified COPD Qualified Code(s): J44.9 - Chronic obstructive pulmonary disease, unspecified (5) DVT prophylaxis Current Visit: No Status: Acute Assessment and plan: EPCDs, INR elevated - Time Spent With Patient Total time spent is greater than 50% in coordination of care (as documented) at patient's floor/unit and/or counseling patient:
[2018-10-01] MEDS ORDERED: Octreotide 50 MCG/ML SYRINGE IVP ONE (05:21)
[2018-10-01] MEDS ORDERED: Ipratropium/Albuterol Neb 3 ML IH PRN (05:23)
[2018-10-01] MEDS: cefTRIAXone 2,000 MG in Water for inj. (sterile) 20 ML 20 ML IVPB SCH (05:42)
[2018-10-01] MEDS: Pantoprazole 40 MG VIAL IVP SCH ×2 (05:43→18:05)
[2018-10-01] MEDS: Octreotide 400 MCG in 0.9 % Sodium Chloride 100 ML IVC SCH ×2 (06:10→21:54)
[2018-10-01] MEDS: Lactulose Oral Soln 20 GM/30 ML UDC PO SCH (08:59)
[2018-10-01] MEDS: Furosemide 40 MG/4 ML VIAL IVP SCH ×2 (08:59→20:40)
--- NOTE | 2018-10-01 11:11 | Internal Med Progress Note ---
<Juan Orantes - Last Filed: 10/01/18 14:47> Hospitalist Progress Note - Encounter Date of Encounter: 10/01/18 Time of Encounter: 10:00 - Subjective Interval History: Patient lying comfortably in bed and does not have any new complaints. No chest pain, shortness of breath. He reports abdominal distention and pressure. - Exam Vitals: Temp Pulse Resp BP Pulse Ox 98.2 F 57 18 98/60 98 10/01/18 11:07 10/01/18 11:07 10/01/18 11:07 10/01/18 11:07 10/01/18 11:07 Exam: General: pleasant, without distress Cardiovascualr: Regular rate and rhythm with no murmur, absent gallops or rubs, absent pedal edema, radial pulses 2 out of 4 Lungs: Clear to auscultation bilaterally, not in respiratory distress Abdomen: Soft nontender, distended positive bowel sounds, absent hepatomegaly Skin: warm and dry, absent rash, absent open wounds and nodules MSK: absent clubbing, cyanosis, joints without swelling Neuro: Cranial nerves II through XII intact, UE and LE sensation equal bilaterally, UE and LEstrength 5/5, alert oriented 3, Psych: good insight and judgment - Assessment and Plan (1) Cirrhosis Current Visit: Yes Status: Acute Assessment and Plan: 48-year-old male presents with diffuse swelling. He has a history of cirrhosis secondary to chronic hepatitis C. Meld 24 child loyola class C Anasarca on exam CT abdomen pelvis shows hepatic cirrhosis with portal venous hypertension, splenomegaly, diffuse fluid volume overload, cholelithiasis, acute cholecystitis is a consideration. We will continue Lasix 60 mg IV twice a day. Patient is on a clear liquid diet. fluid restrict to 2L (2) Anemia due to GI blood loss Current Visit: Yes Status: Acute Assessment and Plan: Patient reports dark red bowel movements. Patient's hemoglobin is 9.2 previous hemoglobin in August was 12. Patient is on PPI drip twice a day, octreotide, propanolol GI consulted and planned to scope tomorrow. (3) Cholecystitis Current Visit: Yes Status: Acute Assessment and Plan: CT scan shows acute cholecystitis Likely sign of irritation from ascites Negative De La O's sign Surgeries consulted for recommendation (4) Chronic hepatitis C Current Visit: No Status: Acute Assessment and Plan: History of hepatitis C Continues outpatient GI follow-up. (5) COPD (chronic obstructive pulmonary disease) Current Visit: Yes Status: Acute Assessment and Plan: Not an acute exacerbation Continue bronchodilators. (6) DVT prophylaxis Current Visit: Yes Status: Acute Assessment and Plan: EPC D. - Time Spent with Patient Total time spent is greater than 50% in coordination of care (as documented) at patient's floor/unit and/or counseling patient: Internal Medicine: Result - Labs CBC & Chem 7: 10/01/18 01:48 10/01/18 01:48 Labs: Short CBC 09/30/18 10/01/18 Range/Units 21:42 01:48 WBC 5.5 5.3 (4.3-11.1) K/mcL Hgb 9.2 L 9.2 L (12.9-16.9) g/dL Hct 26.6 L 26.0 L (37.5-50.1) % Plt Count 47 L 45 L (140-400) K/mcL Neutrophils # 3.2 2.9 (1.6-8.9) K/mcL BMP 09/30/18 10/01/18 21:42 01:48 Sodium 132 L 133 L Potassium 4.4 4.1 Chloride 102 102 Carbon Dioxide 26 24 BUN 31 H 30 H Creatinine 1.17 1.10 Glucose 123 H 103 Calcium 7.9 L 7.8 L Liver Function 09/30/18 10/01/18 Range/Units 21:42 01:48 Total Bilirubin 7.1 H 6.8 H (0.3-1.0) mg/dL Direct Bilirubin 3.8 H 3.5 H (0.0-0.2) mg/dL AST 109 H 110 H (13-39) Units/L ALT 48 47 (7-52) Units/L Alkaline Phosphatase 62 60 (34-104) Units/L Albumin 2.7 L 2.7 L (3.5-5.7) g/dL - ABG Interpretation ABG results: PT/INR, D-dimer PT 21.4 Seconds (9.4-12.1) H 10/01/18 01:48 - Impressions Impressions Chest X-Ray 09/30/18 21:34 IMPRESSION: Minimal lateral right basilar atelectasis. Lungs are otherwise clear. 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 Cholelithiasis; acute cholecystitis is a consideration. Nonobstructing calculus upper pole left kidney is unchanged. No focal bowel obstruction is evident. D/ / Checo Bennett / Checo Bennett Interpreting Provider: Checo Bennett Consult Discharge Plan - Plan Referrals: Naveed López MD [Primary Care Provider] - <Jacobo Holbrook - Last Filed: 10/01/18 15:47> Hospitalist Progress Note - Encounter Date of Encounter: 10/01/18 - Exam Vitals: Temp Pulse Resp BP Pulse Ox 98.2 F 57 18 98/60 98 10/01/18 11:07 10/01/18 11:07 10/01/18 11:07 10/01/18 11:07 10/01/18 11:07 - Assessment and Plan (1) DVT prophylaxis Current Visit: Yes Status: Acute (2) Cirrhosis Current Visit: Yes Status: Acute (3) Chronic hepatitis C Current Visit: No Status: Acute (4) Anemia due to GI blood loss Current Visit: Yes Status: Acute (5) COPD (chronic obstructive pulmonary disease) Current Visit: Yes Status: Acute - Time Spent with Patient Total time spent is greater than 50% in coordination of care (as documented) at patient's floor/unit and/or counseling patient: Internal Medicine: Result - Labs CBC & Chem 7: 10/01/18 01:48 10/01/18 01:48 Labs: Short CBC 09/30/18 10/01/18 Range/Units 21:42 01:48 WBC 5.5 5.3 (4.3-11.1) K/mcL Hgb 9.2 L 9.2 L (12.9-16.9) g/dL Hct 26.6 L 26.0 L (37.5-50.1) % Plt Count 47 L 45 L (140-400) K/mcL Neutrophils # 3.2 2.9 (1.6-8.9) K/mcL BMP 09/30/18 10/01/18 21:42 01:48 Sodium 132 L 133 L Potassium 4.4 4.1 Chloride 102 102 Carbon Dioxide 26 24 BUN 31 H 30 H Creatinine 1.17 1.10 Glucose 123 H 103 Calcium 7.9 L 7.8 L Liver Function 09/30/18 10/01/18 Range/Units 21:42 01:48 Total Bilirubin 7.1 H 6.8 H (0.3-1.0) mg/dL Direct Bilirubin 3.8 H 3.5 H (0.0-0.2) mg/dL AST 109 H 110 H (13-39) Units/L ALT 48 47 (7-52) Units/L Alkaline Phosphatase 62 60 (34-104) Units/L Albumin 2.7 L 2.7 L (3.5-5.7) g/dL - ABG Interpretation ABG results: PT/INR, D-dimer PT 21.4 Seconds (9.4-12.1) H 10/01/18 01:48 - Impressions Impressions Chest X-Ray 09/30/18 21:34 IMPRESSION: Minimal lateral right basilar atelectasis. Lungs are otherwise clear. 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 Cholelithiasis; acute cholecystitis is a consideration. Nonobstructing calculus upper pole left kidney is unchanged. No focal bowel obstruction is evident. D/ / Checo Bennett / Checo Bennett Interpreting Provider: Checo Bennett Abdomen/Pelvis/Transvag US 10/01/18 12:12 IMPRESSION: No significant ascites to safely perform paracentesis D/ / Adam Juárez MD / Adam Juárez MD Interpreting Provider: Adam Juárez MD - Attending Attestation I have seen and independently assessed this patient and I agree with plan as documented Plan Fluid overload 2/2 to decompensated liver cirrhosis. Continue on lasix and spironolactone. Plan for paracentesis Anemia with dark stools r/o GI bleed. On protonix and octreotide 2/2 to possible variceal bleeding. Gi plan for endoscopy Cholecystitis. seen on CT scan. Surgery consulted and recs appreciated <Juan Orantes - Last Filed: 10/01/18 14:47> (1) Cirrhosis Qualifiers: Hepatic cirrhosis type: unspecified hepatic cirrhosis Ascites presence: with ascites Qualified Code(s): K74.60 - Unspecified cirrhosis of liver; R18.8 - Other ascites (4) Chronic hepatitis C Qualifiers: Hepatic coma status: without hepatic coma Qualified Code(s): B18.2 - Chronic viral hepatitis C (5) COPD (chronic obstructive pulmonary disease) Qualifiers: COPD type: unspecified COPD Qualified Code(s): J44.9 - Chronic obstructive pulmonary disease, unspecified <Jacobo Holbrook - Last Filed: 10/01/18 15:47> (2) Cirrhosis Qualifiers: Hepatic cirrhosis type: unspecified hepatic cirrhosis Ascites presence: with ascites Qualified Code(s): K74.60 - Unspecified cirrhosis of liver; R18.8 - Other ascites (3) Chronic hepatitis C Qualifiers: Hepatic coma status: without hepatic coma Qualified Code(s): B18.2 - Chronic viral hepatitis C (5) COPD (chronic obstructive pulmonary disease) Qualifiers: COPD type: unspecified COPD Qualified Code(s): J44.9 - Chronic obstructive pulmonary disease, unspecified
--- NOTE | 2018-10-01 12:17 | Gastroenterology Consult Note ---
Addendum entered and electronically signed by Jagjit Casanova CNP 10/01/18 13:45: GI Bleed: Hgb 12 on 08/22/18, 9.2 on admission and today Hgb 9.2. Continue to monitor CBC and transfuse PRBC as needed. Fecal occult blood test positive. Plan for colonoscopy tomorrow. Clear liquid diet today, no red or purple. NPO at midnight. If unable tolerate NuLytely please use MiraLAX prep. If not clear by 6 AM, give 2 tap water enemas. Original Note: <Jagjit Casanova - Last Filed: 10/01/18 12:13> Date of Encounter: 10/01/18 Time of Encounter: 09:55 - Assessment and plan (1) Cirrhosis Current Visit: No Status: Acute Assessment and plan: MELD-Na 26 and Child-Boat[place] class C. Titrate Lactulose for 2-4 BMs daily. Continue Rifaximin 550mg BID. Continue Lasix and Aldactone. AFP 18 on 06/21/2018 and 34 on 01/22/2018. Plan for paracentesis, r/o SBP. Patient needs to follow with [facility] or [facility] for possible liver transplant. Lifestyle Changes: 1. Total abstinence from alcohol including social drinking. 2. No smoking. 3. Gradual loss of weight. 4. Drink at least 3 cups of coffee due to its antioxidant effects in the liver, it reduces risk of HCC and advance fibrosis. 5. If needed, use less than 2 g/day of Tylenol (in divided doses). 6. Vaccination for Hep A, B, Pneumococcus if not already received and yearly influenza vaccination by PCP. 7. Avoid NSAIDS as can cause kidney damage. 8. Avoid benzodiazepines and other sedatives such as anti-histamines, narcotics etc. as can cause encephalopathy or confusion. 9. Take a late carbohydrate meal supplement as it reduces glucose production from protein breakdown and thus improves nutrition. 10. In cirrhosis, statins are safe to use and also improve portal hypertension and decrease risk of HCC. 11. Screening: Hepatocellular cancer screening: [place] of liver and AFP every 6 months Qualifiers: Hepatic cirrhosis type: unspecified hepatic cirrhosis Ascites presence: with ascites Qualified Code(s): K74.60 - Unspecified cirrhosis of liver; R18.8 - Other ascites (2) Ascites Current Visit: No Status: Acute Assessment and plan: Continue Lasix and Aldactone. Complete paracentesis, r/o SBP. Qualifiers: Ascites type: other type Qualified Code(s): R18.8 - Other ascites (3) Chronic hepatitis C Current Visit: No Status: Acute Assessment and plan: Hep C viral load 4.67 million and genotype IIIa on 04/10/2018. HIV negative 07/04/2018. Instructed patient to not share any thing that could potentially cause bleeding such as razors, nail clippers, hair clippers. Instructed patient that if they were to cut themselves they need to clean up the blood or if someone else cleans up they need to wear gloves. Instructed patient they need to use protection while having sex. Qualifiers: Hepatic coma status: without hepatic coma Qualified Code(s): B18.2 - Chronic viral hepatitis C (4) Anasarca Current Visit: Yes Status: Acute - Time Spent With Patient Total time spent is greater than 50% in coordination of care (as documented) at patient's floor/unit and/or counseling patient: GI History of Present Illness - Data of Consult Patient: known to practice within the last 3 years Consult date: 10/01/18 Requesting Physician: Benita Sales MD - Consult Narrative Reason for consult: GI Bleed History of present illness: Mr. Mitchell is a 48 year old male with PMHx of cirrhosis, CHF, COPD, Hepatitis C, HTN presents with diffuse swelling. Patient states that he recently saw his channel machine operator at [facility] and he felt generally unwell and had diffuse swelling. It was recommended that the patient be admitted at [facility] however refused and presented to our ED. He is taking Lasix 60mg BID and Aldactone 150 mg daily. He states his shortness of breath is worsening. He is having 2-3 BMs daily, and states he feels like he is thinking clearly. Hgb 12 on 08/22/18, 9.2 on admission and today Hgb 9.2. Fecal occult blood test positive. Procedures: EGD 02/12/2018 Dr. Trinidad: LA Grade B esophagitis, gastritis, portal hypertensive gastropathy. Colonoscopy 10/18/2017 Dr. Garcia: Hyperplastic polyp, 10 mm tubular adenoma, internal hemorrhoids, repeat in 3 years. NSAIDs: None Anticoagulation: None Past Med Surg Social Fam HX - Past Medical History Medical history: cirrhosis, CHF, COPD, hepatitis, hypertension, kidney stones, liver disease Additional medical history: Hepatitis C. Splenomegaly Psychiatric history: no psych history - Past Surgical History Surgical History: no surgical history Additional surgical history: BILAT TUBES IN EARS,COLONOSCOPY,EGD,ESOPHAGEAL VARICES WITH BANDING - Social History Smoking Status: Current every day smoker Packs per day: 07/19 Smokeless Tobacco Status: No Alcohol use: none Drug use: none - Family History Brother Living Status: Still Living Hx Family Cardiac Disorders: Yes Hx Family Endocrine Disorder: Yes Father Living Status: Hx Family Cancer: Yes (Lung) - Gastrointestinal Gastrointestinal: Present: as per HPI - Constitutional Constitutional: as per HPI - EENT Eyes: as per HPI Ears: Present: as per HPI Nose, mouth and throat: Present: as per HPI - Cardiovascular Cardiovascular ROS: Present: as per HPI - Respiratory Respiratory IM: Present: as per HPI - Genitourinary Genitourinary: Absent: change in color, Urinary frequency - Neurological ROS Neurological GI: Present: as per HPI - Hematologic/Lymphatic Hematologic/Lymphatic pediatric: Present: as per HPI - Musculoskeletal Musculoskeletal ROS GI: Present: as per HPI - Integumentary Integumentary GI: Present: as per HPI - Psychiatric ROS Psychiatric GI: Present: as per HPI - Endocrine Endocrine IM: Present: as per HPI - Constitutional Vitals: Temp Pulse Resp BP Pulse Ox 98.2 F 57 18 98/60 98 10/01/18 11:07 10/01/18 11:07 10/01/18 11:07 10/01/18 11:07 10/01/18 11:07 General appearance: Present: cooperative, A&O X 3, no acute distress, answers questions appropriately - Head Head exam: Present: atraumatic, normocephalic - Eye Eye exam: Present: normal appearance, sclera anicteric - ENT ENT exam: Present: mucous membranes dry - Neck Neck exam general surgery: Present: normal inspection, trachea midline - Respiratory Respiratory exam: Present: decreased breath sounds, CTAB. Absent: rales, rhonchi - Cardiovascular Cardiovascular exam: Present: RRR, +S1, +S2 - GI/Abdominal GI/Abdominal exam: Present: distended, soft, tenderness (generalized), no peritoneal signs. Absent: firm, guarding - Expanded GI/Abdominal Exam GI/Abdominal exam expanded: Present: ascites - Rectal Rectal exam: Present: deferred - Extremities Exam Extremities exam: Present: warm - Neurological Exam Neurological exam: Present: no focal deficits - Psychiatric Psychiatric exam: Present: normal affect, normal mood - Skin Skin exam: Present: dry, intact, normal color, warm Results - Labs CBC & Chem 7: 10/01/18 01:48 10/01/18 01:48 Labs: Last Result Calcium 7.8 mg/dL (8.6-10.3) L 10/01/18 01:48 Entire Visit Hgb 9.2 g/dL (12.9-16.9) L 10/01/18 01:48 Hct 26.0 % (37.5-50.1) L 10/01/18 01:48 PT 21.4 Seconds (9.4-12.1) H 10/01/18 01:48 Total Bilirubin 6.8 mg/dL (0.3-1.0) H 10/01/18 01:48 AST 110 Units/L (13-39) H 10/01/18 01:48 ALT 47 Units/L (7-52) 10/01/18 01:48 - ABG ABG results: PT/INR, D-dimer PT 21.4 Seconds (9.4-12.1) H 10/01/18 01:48 - Impressions Impressions Chest X-Ray 09/30/18 21:34 IMPRESSION: Minimal lateral right basilar atelectasis. Lungs are otherwise clear. 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 Cholelithiasis; acute cholecystitis is a consideration. Nonobstructing calculus upper pole left kidney is unchanged. No focal bowel obstruction is evident. D/ / Checo Bennett / Checo Bennett Interpreting Provider: Checo Bennett Consult Discharge Plan - Plan Referrals: Naveed López MD [Primary Care Provider] - <Jenifer Trinidad - Last Filed: 10/01/18 18:02> Date of Encounter: 10/01/18 Time of Encounter: 14:00 - Time Spent With Patient Total time spent is greater than 50% in coordination of care (as documented) at patient's floor/unit and/or counseling patient: GI History of Present Illness - Data of Consult Requesting Physician: Benita Sales MD - Consult Narrative History of present illness: Mr. Mitchell is a 48 year old male - Constitutional Vitals: Temp Pulse Resp BP Pulse Ox 98.7 F 71 16 98/56 94 10/01/18 16:35 10/01/18 16:35 10/01/18 16:35 10/01/18 16:35 10/01/18 16:35 Results - Labs CBC & Chem 7: 10/01/18 01:48 10/01/18 01:48 Labs: Last Result Calcium 7.8 mg/dL (8.6-10.3) L 10/01/18 01:48 Entire Visit Hgb 9.2 g/dL (12.9-16.9) L 10/01/18 01:48 Hct 26.0 % (37.5-50.1) L 10/01/18 01:48 PT 21.4 Seconds (9.4-12.1) H 10/01/18 01:48 Total Bilirubin 6.8 mg/dL (0.3-1.0) H 10/01/18 01:48 AST 110 Units/L (13-39) H 10/01/18 01:48 ALT 47 Units/L (7-52) 10/01/18 01:48 - ABG ABG results: PT/INR, D-dimer PT 21.4 Seconds (9.4-12.1) H 10/01/18 01:48 - Impressions Impressions Chest X-Ray 09/30/18 21:34 IMPRESSION: Minimal lateral right basilar atelectasis. Lungs are otherwise clear. 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 Cholelithiasis; acute cholecystitis is a consideration. Nonobstructing calculus upper pole left kidney is unchanged. No focal bowel obstruction is evident. D/ / Checo Bennett / Checo Bennett Interpreting Provider: Checo Bennett Abdomen/Pelvis/Transvag US 10/01/18 12:12 IMPRESSION: No significant ascites to safely perform paracentesis D/ / Adam Juárez MD / Adam Juárez MD Interpreting Provider: Adam Juárez MD - Attending Attestation I have personally performed a face to face evaluation on this patient. I have reviewed and agree with the care plan. History and Exam by me shows: Patient seen patient 48-year-old male with cirrhosis, CHF, COPD, Hepatitis C, HTN presents with diffuse swelling. Has been complaining of rectal bleeding per patient the bleeding can be excessive at time. On examination alert and awake does has mildly distended belly. Assessment: Patient with cirrhosis with high meld score and possible fluid overload with rectal bleeding and anemia. Recommendation: Ascitic tap by IR will adjust his diuretic dosage. Will be referred to US outpatient for further workup for his cirrhosis. Also will have an EGD and colonoscopy done for his anemia/rectal bleeding
--- NOTE | 2018-10-01 16:36 | AcuteCare Surgery Consult Note ---
Date of Encounter: 10/01/18 Time of Encounter: 16:45 Assessment and Plan (1) Cholecystitis Current Visit: Yes Status: Acute Possible acute on chronic. Recommend IV abx for cholecystitis. Pt is not symptomatic. He doesn't have a leukocytosis or fever. Surgery is not recommended at this time. If pt's condition changes, please, reconsult prn. (2) Cholelithiasis Current Visit: Yes Status: Acute Asymtpomatic Qualifiers: Qualified Code(s): K80.10 - Calculus of gallbladder with chronic cholecystitis without obstruction (3) Cirrhosis Current Visit: Yes Status: Acute Chronic with liver failure and complications of esophageal varices with hx UGI bleeding, portal HTN, ascites, splenomegaly. Qualifiers: Hepatic cirrhosis type: unspecified hepatic cirrhosis Ascites presence: with ascites Qualified Code(s): K74.60 - Unspecified cirrhosis of liver; R18.8 - Other ascites (4) Liver failure Current Visit: Yes Status: Acute Pt has been referred to [facility] for hepatology/hepatobiliary consults. Qualifiers: Liver failure chronicity: unspecified chronicity Hepatic coma status: [facility] hepatic coma Qualified Code(s): K72.90 - Hepatic failure, unspecified without coma (5) Ascites Current Visit: No Status: Acute US guided paracentesis aborted today d/t inadequate volume of ascites for safe procedure. Qualifiers: Ascites type: other type Qualified Code(s): R18.8 - Other ascites (6) COPD (chronic obstructive pulmonary disease) Current Visit: Yes Status: Acute Chronic; management per hospitalist. Qualifiers: COPD type: unspecified COPD Qualified Code(s): J44.9 - Chronic obstructive pulmonary disease, unspecified (7) Acute diastolic CHF (congestive heart failure) Current Visit: No Status: Acute Chronic; management per hospitalist. History of Present Illness Reason for consult: gallstones Requesting physician: Juan Orantes History of present illness: This 48 y/o male with known cirrhosis with chronic liver failure (and associated complications of UGI bleed d/t esopahgeal varices, portal HTN and spenomegaly), CHF, COPD, renal failure, HTN, presents to [facility] ER c/o severe swelling in his legs and "everywhere." He was also SOB. He is not short of breath today. He reports abdominal distension but, denies abdominal pain. He denies RUQ abd pain. He denies nausea or vomiting. He denies loss of appetite. He reports jaundice. This is not new. He reports recent BRBPR. GI is on case and follows outpt as well. Past Med Surg Social Fam HX - Past Medical History Medical history: cirrhosis, CHF, COPD, hepatitis, hypertension, kidney stones, liver disease Additional medical history: Hepatitis C. Splenomegaly Psychiatric history: no psych history - Past Surgical History Surgical History: no surgical history Additional surgical history: BILAT TUBES IN EARS,COLONOSCOPY,EGD,ESOPHAGEAL VARICES WITH BANDING - Social History Smoking Status: Current every day smoker Packs per day: 07/19 Smokeless Tobacco Status: No Alcohol use: none Drug use: none - Family History Brother Living Status: Still Living Hx Family Cardiac Disorders: Yes Hx Family Endocrine Disorder: Yes Father Living Status: Hx Family Cancer: Yes (Lung) Medications and Allergies Albuterol Sulfate [Proair Hfa] 2 puff IH Q4H PRN 01/16/18 [History] Calcipotriene [Dovonex] 60 gm TP BID 01/16/18 [History] Fluticasone/Salmeterol [Advair 250-50 Diskus] 1 puff IH BID 01/16/18 [History] Tiotropium [Spiriva] 2 puff IH 0700 01/16/18 [History] Omeprazole [PriLOSEC] 40 mg PO BID 06/04/18 [History] Propranolol HCl 10 mg PO BID 08/22/18 [History] Rifaximin [Xifaxan] 550 mg PO BID 08/22/18 [History] Spironolactone [Aldactone] 150 mg PO BID 08/22/18 [History] metOLazone [Metolazone] 10 mg PO DAILY 08/22/18 [History] traZODone [TraZODone] 50 mg PO HS 08/22/18 [History] Bumetanide [Bumex] 2 mg PO BID 10/01/18 [History] Lactulose 20 gm PO DAILY 10/01/18 [History] Allergy/AdvReac Type Severity Reaction Status Date / Time No Known Allergies Allergy Verified 08/22/18 19:34 Review of Systems All systems PM: The remainder of the systems were reviewed and are negative - Constitutional as per HPI, fatigue, weight gain, no anorexia, no chills, no fever(s) - EENT Nose, mouth and throat: dry mouth, no dysphagia, no nasal congestion, no nasal discharge, no sinus pain, no sinus pressure, no sore throat - Cardiovascular dyspnea, dyspnea on exertion, edema, no chest pain, no diaphoresis - Respiratory dyspnea, no cough, no wheezing - Gastrointestinal bloating, no abdominal pain, no belching, no constipation, no cramping, no diarrhea, no hematemesis, no melena, no nausea, no vomiting - Genitourinary no difficulty urinating, no dysuria, no urinary frequency - Musculoskeletal back pain, joint swelling, limited range of motion, neck pain - Integumentary dry skin, jaundice, no pruritus, no rash, no wounds - Neurological confusion, weakness, no dizziness, no focal weakness - Hematologic/Lymphatic easy bleeding, easy bruising General Surgery Exam Initial Vital Signs Temp Pulse Resp BP Pulse Ox 98.8 F 93 22 120/69 96 09/30/18 20:33 09/30/18 20:33 09/30/18 20:33 09/30/18 20:09/30/18 20:33 - General physical appearance well developed, no distress, no pain, jaundice, other (bilateral edema and general anasarca) - Eyes PERRL, normal ocular movement, icteric - ENT no congestion, dry mucosa. negative: nasal discharge - Neck no masses, no lymphadectomy. negative: no venous distension - Respiratory normal respiratory effort, clear to auscultation - Cardiovascular Cardiovascular exam: Present: RRR - Abdomen Abdomen general surgery: Present: bowel sounds present, soft, non tender, distended. Absent: tympanic, guarding, rebound - Genitourinary Present: normal penis with no external lesions - Integumentary Integumentary general surgery: Present: other (jaundice) - Neurologic Present: CN 2-12 grossly intact, normal coordination. Absent: confused, disoriented - Musculoskeletal Present: normal posture - Psychiatric Psychiatric general surgery: Present: A&Ox3, appropriate Exam Initial Vital Signs Temp Pulse Resp BP Pulse Ox 98.8 F 93 22 120/69 96 09/30/18 20:33 09/30/18 20:33 09/30/18 20:33 09/30/18 20:33 09/30/18 20:33 Results - Labs 10/01/18 01:48 10/01/18 01:48 Abnormal lab results RBC 2.78 M/mcL (4.19-5.50) L 10/01/18 01:48 Hgb 9.2 g/dL (12.9-16.9) L 10/01/18 01:48 Hct 26.0 % (37.5-50.1) L 10/01/18 01:48 RDW 15.8 % (11.5-14.5) H 10/01/18 01:48 Plt Count 45 K/mcL (140-400) L 10/01/18 01:48 MPV 12.7 fL (9.4-12.4) H 10/01/18 01:48 Immature Plt Fraction 6.3 % (1.1-6.1) H 10/01/18 01:48 PT 21.4 Seconds (9.4-12.1) H 10/01/18 01:48 Sodium 133 mEq/L (136-145) L 10/01/18 01:48 BUN 30 mg/dL (6-20) H 10/01/18 01:48 BUN/Creatinine Ratio 27 (6-26) H 10/01/18 01:48 Calcium 7.8 mg/dL (8.6-10.3) L 10/01/18 01:48 Total Bilirubin 6.8 mg/dL (0.3-1.0) H 10/01/18 01:48 Direct Bilirubin 3.5 mg/dL (0.0-0.2) H 10/01/18 01:48 Indirect Bilirubin 3.3 mg/dL (0.0-1.2) H 10/01/18 01:48 AST 110 Units/L (13-39) H 10/01/18 01:48 B-Natriuretic Peptide 116 pg/mL (Less than 100) H 09/30/18 21:42 Serum Total Protein 4.6 g/dL (6.4-8.9) L 10/01/18 01:48 Albumin 2.7 g/dL (3.5-5.7) L 10/01/18 01:48 Globulin 1.9 g/dL (2.4-3.5) L 10/01/18 01:48 Stool Occult Bld Scrn Positive (Negative) A 09/30/18 22:40 Diabetes panel 09/30/18 10/01/18 10/01/18 Range/Units 21:42 01:48 01:48 Sodium 132 L 133 L (136-145) mEq/L Potassium 4.4 4.1 (3.5-5.1) mEq/L Chloride 102 102 (98-107) mEq/L Carbon Dioxide 26 24 (23-29) mEq/L BUN 31 H 30 H (6-20) mg/dL Creatinine 1.17 1.10 (0.70-1.30) mg/dL Glucose 123 H 103 (70-105) mg/dL Calcium 7.9 L 7.8 L (8.6-10.3) mg/dL AST 109 H 110 H (13-39) Units/L ALT 48 47 (7-52) Units/L Alkaline Phosphatase 62 60 (34-104) Units/L Albumin 2.7 L 2.7 L (3.5-5.7) g/dL Calcium panel 09/30/18 10/01/18 10/01/18 Range/Units 21:42 01:48 01:48 Calcium 7.9 L 7.8 L (8.6-10.3) mg/dL Albumin 2.7 L 2.7 L (3.5-5.7) g/dL Pituitary panel 09/30/18 10/01/18 Range/Units 21:42 01:48 Sodium 132 L 133 L (136-145) mEq/L Potassium 4.4 4.1 (3.5-5.1) mEq/L Chloride 102 102 (98-107) mEq/L Carbon Dioxide 26 24 (23-29) mEq/L BUN 31 H 30 H (6-20) mg/dL Creatinine 1.17 1.10 (0.70-1.30) mg/dL Glucose 123 H 103 (70-105) mg/dL Calcium 7.9 L 7.8 L (8.6-10.3) mg/dL Adrenal panel 09/30/18 10/01/18 10/01/18 Range/Units 21:42 01:48 01:48 Sodium 132 L 133 L (136-145) mEq/L Potassium 4.4 4.1 (3.5-5.1) mEq/L Chloride 102 102 (98-107) mEq/L Carbon Dioxide 26 24 (23-29) mEq/L BUN 31 H 30 H (6-20) mg/dL Creatinine 1.17 1.10 (0.70-1.30) mg/dL Glucose 123 H 103 (70-105) mg/dL Calcium 7.9 L 7.8 L (8.6-10.3) mg/dL Total Bilirubin 7.1 H 6.8 H (0.3-1.0) mg/dL AST 109 H 110 H (13-39) Units/L ALT 48 47 (7-52) Units/L Alkaline Phosphatase 62 60 (34-104) Units/L Albumin 2.7 L 2.7 L (3.5-5.7) g/dL All other labs normal. - Imaging CT scan - abdomen: image reviewed (Unchanged appearance of hepatic cirrhosis and sequela from portal venous hypertension including splenomegaly, diffuse fluid volume overload (ascites and anasarca) and perigastric, perisplenic and probable periesophageal varices. Cholelithiasis; acute cholecystitis is a consideration.) CT scan - pelvis: image reviewed Consult Discharge Plan - Plan Referrals: Naveed López MD [Primary Care Provider] -
[2018-10-01] MEDS ORDERED: SODIUM CHLORIDE/NAHCO3/KCL/PEG 4,000 ML SOLN.RECON PO ONE (17:00)
--- NOTE | 2018-10-01 21:18 | Electrocardiograph Report ---
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
[2018-10-02] MEDS: Pantoprazole 40 MG VIAL IVP SCH ×2 (05:05→17:44)
[2018-10-02] MEDS: cefTRIAXone 2,000 MG in Water for inj. (sterile) 20 ML 20 ML IVPB SCH (05:06)
[2018-10-02 06:04] LABS: INR 1.9; Prothrombin Time 21.9 Seconds (9.4-12.1)
[2018-10-02 06:12] LABS: Basophils % 0.7 %; Hemoglobin 8.5 g/dL (12.9-16.9); Immature Granulocytes % 0.2 % (0-4); Mean Corpuscular Volume 95.4 fL (83.0-100.0); Red Cell Distribution Width 15.9 % (11.5-14.5)
[2018-10-02 06:13] LABS: Alanine Aminotransferase 45 Units/L (7-52); Albumin 2.5 g/dL (3.5-5.7); Albumin/Globulin Ratio 1.3 (1.1-2.2); Alkaline Phosphatase 57 Units/L (34-104); Aspartate Amino Transferase 110 Units/L (13-39); BUN/Creatinine Ratio 24 (6-26); Bilirubin,Direct 4.4 mg/dL (0.0-0.2); Bilirubin,Indirect 4.2 mg/dL (0.0-1.2); Bilirubin,Total 8.6 mg/dL (0.3-1.0); Blood Urea Nitrogen 32 mg/dL (6-20); Calcium 7.7 mg/dL (8.6-10.3); Carbon Dioxide 27 mEq/L (23-29); Chloride 99 mEq/L (98-107); Eosinophils # 0.2 K/mcL (0.0-0.6); Eosinophils % 4.9 %; Globulin 1.9 g/dL (2.4-3.5); Glucose 110 mg/dL (70-105); Hematocrit 24.9 % (37.5-50.1); Immature Platelets 8.4 % (1.1-6.1); Lymphocytes # 1.4 K/mcL (0.6-4.6); Lymphocytes % 33.6 %; Mean Corpuscular HGB Conc 34.1 g/dL (31.6-35.5); Mean Corpuscular Hemoglobin 32.6 pg (28.0-33.3); Mean Platelet Volume 12.3 fL (9.4-12.4); Monocytes % 13.3 %; Neutrophils # 1.9 K/mcL (1.6-8.9); Osmolality,Calculated 282 (280-300); Potassium 4.4 mEq/L (3.5-5.1); Red Blood Count 2.61 M/mcL (4.19-5.50); Segmented Neutrophils % 47.3 %; Sodium 132 mEq/L (136-145); Total Protein 4.4 g/dL (6.4-8.9); eGFR For Non-African Americans 58 (> 60)
[2018-10-02 06:16] LABS: Monocytes # 0.6 K/mcL (0.0-1.3); Platelet Count 44 K/mcL (140-400)
[2018-10-02] MEDS: Lactulose Oral Soln 20 GM/30 ML UDC PO SCH (08:18)
[2018-10-02] MEDS: Furosemide 40 MG/4 ML VIAL IVP SCH (08:28)
[2018-10-02] MEDS ORDERED: Furosemide 40 MG/4 ML VIAL IVP SCH (08:30)
[2018-10-02] MEDS: Octreotide 400 MCG in 0.9 % Sodium Chloride 100 ML IVC SCH (15:14)
--- NOTE | 2018-10-02 16:37 | Internal Med Progress Note ---
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 He denies fever, chills, N/V or diarrhea. He denies chest pain or SOB. - Exam Vitals: Temp Pulse Resp BP Pulse Ox 98.3 F 59 16 89/41 93 10/02/18 16:02 10/02/18 16:02 10/02/18 16:02 10/02/18 16:02 10/02/18 16:02 Exam: General: pleasant, without distress Cardiovascualr: Regular rate and rhythm with no murmur, absent gallops or rubs, absent pedal edema, radial pulses 2 out of 4 Lungs: Clear to auscultation bilaterally, not in respiratory distress Abdomen: Soft non-tender, distended positive bowel sounds, absent hepatomegaly Skin: warm and dry, absent rash, absent open wounds and nodules MSK: absent clubbing, cyanosis, joints without swelling Neuro: Cranial nerves II through XII intact, UE and LE sensation equal bilaterally, UE and LEstrength 5/5, alert oriented 3, Psych: good insight and judgment - Assessment and Plan (1) Cirrhosis Current Visit: Yes Status: Acute Assessment and Plan: Hx of Hep C likely from IVDU. Pt has known decompensated cirrhosis secondary to chronic hepatitis C. Meld 24. Child Boateng class C. Presented with worsening anasarca. Abd US not showing significant ascites and not safe for paracenthesis though noted by CT abdomen and pelvis. On Lasix 60 mg IV BID and Continue Aldactone. No evidence of hepatic encephalopathy, continue lactulose and rifaximin. GI consulting and appreciate recommendations. (2) Chronic hepatitis C Current Visit: No Status: Acute Assessment and Plan: Resulting in cirrhosis as above. Follow-up with GI. (3) Anemia due to GI blood loss Current Visit: Yes Status: Acute Assessment and Plan: Patient hemoglobin is 9.3 on presentation, baseline appears to be around 12. Having dark red and melanotic stools with occult positive stool. Concern for GI bleed. Hemodynamically stable. No evidence of active variceal bleed. Started on Protonix 40 mg IV push twice a day. GI planning on endoscopy 10/02/18. Will transfuse PRBC for hemoglobin less than 7. (4) COPD (chronic obstructive pulmonary disease) Current Visit: Yes Status: Acute Assessment and Plan: Stable. No evidence of exacerbation. When necessary bronchodilators. (5) Acute kidney injury Current Visit: Yes Status: Acute Assessment and Plan: Likely due to diuresis. Will hold lasix and aldactone dose today and recheck renal panel in am. DVT Prophylaxis: EPCDs, INR elevated due to cirrhosis - Time Spent with Patient Total time spent is greater than 50% in coordination of care (as documented) at patient's floor/unit and/or counseling patient: less than 15 minutes Plan of Care Discussed with: patient Internal Medicine: Result - Labs CBC & Chem 7: 10/02/18 05:03 10/02/18 05:03 Labs: Short CBC 10/02/18 Range/Units 05:03 WBC 4.1 L (4.3-11.1) K/mcL Hgb 8.5 L (12.9-16.9) g/dL Hct 24.9 L (37.5-50.1) % Plt Count 44 L (140-400) K/mcL Neutrophils # 1.9 (1.6-8.9) K/mcL BMP 10/02/18 05:03 Sodium 132 L Potassium 4.4 Chloride 99 Carbon Dioxide 27 BUN 32 H Creatinine 1.32 H Glucose 110 H Calcium 7.7 L Liver Function 10/02/18 Range/Units 05:03 Total Bilirubin 8.6 H (0.3-1.0) mg/dL Direct Bilirubin 4.4 H (0.0-0.2) mg/dL AST 110 H (13-39) Units/L ALT 45 (7-52) Units/L Alkaline Phosphatase 57 (34-104) Units/L Albumin 2.5 L (3.5-5.7) g/dL - ABG Interpretation ABG results: PT/INR, D-dimer PT 21.9 Seconds (9.4-12.1) H 10/02/18 05:03 Consult Discharge Plan - Plan Referrals: Naveed López MD [Primary Care Provider] - (1) Cirrhosis Qualifiers: Hepatic cirrhosis type: unspecified hepatic cirrhosis Ascites presence: with ascites Qualified Code(s): K74.60 - Unspecified cirrhosis of liver; R18.8 - Other ascites (2) Chronic hepatitis C Qualifiers: Hepatic coma status: without hepatic coma Qualified Code(s): B18.2 - Chronic viral hepatitis C (4) COPD (chronic obstructive pulmonary disease) Qualifiers: COPD type: unspecified COPD Qualified Code(s): J44.9 - Chronic obstructive pulmonary disease, unspecified
--- NOTE | 2018-10-02 17:46 | Anesthesia Evaluation PreOp ---
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 History: Denies Any Significant HX Other Medical History: Hepatic (Hep C cirrhosis), GERD, Other (thrombocytopenia, esophageal varices) Anesthesia History: No Prior Anesthetic Complications, Past Anesthesia (EGD,) Alcohol Use: none Drug use: none, other (hx of heroin use) Medications and Allergies Albuterol Sulfate [Proair Hfa] 2 puff IH Q4H PRN 01/16/18 [History] Calcipotriene [Dovonex] 60 gm TP BID 01/16/18 [History] Fluticasone/Salmeterol [Advair 250-50 Diskus] 1 puff IH BID 01/16/18 [History] Tiotropium [Spiriva] 2 puff IH 0700 01/16/18 [History] Omeprazole [PriLOSEC] 40 mg PO BID 06/04/18 [History] Propranolol HCl 10 mg PO BID 08/22/18 [History] Rifaximin [Xifaxan] 550 mg PO BID 08/22/18 [History] Spironolactone [Aldactone] 150 mg PO BID 08/22/18 [History] metOLazone [Metolazone] 10 mg PO DAILY 08/22/18 [History] traZODone [TraZODone] 50 mg PO HS 08/22/18 [History] Bumetanide [Bumex] 2 mg PO BID 10/01/18 [History] Lactulose 20 gm PO DAILY 10/01/18 [History] Allergy/AdvReac Type Severity Reaction Status Date / Time No Known Allergies Allergy Verified 08/22/18 19:34 Anesthesia Results - Labs 10/02/18 05:03 10/02/18 05:03 - Imaging EKG: report reviewed (Sinus rhythm Nonspecific IVCD with LAD Possible old inferior [place] Electronically Signed On 10-01-2018 21:17:04 EDT by Marta Carr) Additional studies: ECHO 05/2018 Impressions: LVEF 50%. Mildly dilated left ventricle. Normal left ventricular diastolic function. Normal right ventricular structure and function. Unable to estimate RVSP due to lack of TR jet. No significant valvular dysfunction. Anesthesia Exam Vital Signs/O2 Sat, Most Current Temp Pulse Resp BP Pulse Ox 98.3 F 59 16 89/41 93 10/02/18 16:02 10/02/18 16:02 10/02/18 16:02 10/02/18 16:02 10/02/18 16:02 Weight: 146kg NPO (# of Hours): >8 - HEENT Pupil (Motor): Pupils equal, EOMI Mallampati: III Teeth: Edentulous Oral Opening: Greater than 3 - ETL DATABASE DEVELOPER LOC: Oriented ETL DATABASE DEVELOPER Motor: Normal RUE, Normal LUE, Normal RLE, Normal LLE, Normal Face ETL DAT[employer] DEVELOPER Sensory: Normal: RUE, LUE, RLE, LLE, Face - Cardiac Rhythm: Regular - Pulmonary Breath Sounds: bilateral Clear Respiratory Effort: Symmetrical Anesthesia Assess/Plan ASA Score: 4 ( hep c cirrhosis, smoker, copd, esophageal varices) Level of consciousness: Cooperative Anesthetic Plan: MAC Monitoring Plan: Standard Monitors Recovery Plan: PACU
--- NOTE | 2018-10-02 19:38 | Anesthesia Evaluation Post Op ---
Date of Encounter: 10/02/18 Time of Encounter: 19:37 - Vital Signs Vital Signs: Vital Signs/O2 Sat, Most Current Temp Pulse Resp BP Pulse Ox 98.3 F 59 16 89/41 93 10/02/18 16:02 10/02/18 16:02 10/02/18 16:02 10/02/18 16:02 10/02/18 16:02 - Lungs Lungs: Clear Ascult./Percussion - Airway Airway: Non-obstructed - Cardiovascular Regular Rate - Mental Status Mental Status: Alert & Oriented, Answers Appropriately - Pain Pain Scale: 0 Pain Scale used: Numeric (1 - 10) - Nausea Vomiting Nausea Vomiting: Not Present - Hydration Hydration: NPO - Discharge PostOp Status: Transfer Patient to floor
[2018-10-03 04:53] LABS: Basophils % 0.7 %; Immature Granulocytes % 0.2 % (0-4)
[2018-10-03 04:55] LABS: Eosinophils # 0.2 K/mcL (0.0-0.6); Eosinophils % 5.8 %; Hematocrit 25.1 % (37.5-50.1); Hemoglobin 8.5 g/dL (12.9-16.9); Immature Platelets 7.6 % (1.1-6.1); Lymphocytes # 1.3 K/mcL (0.6-4.6); Lymphocytes % 30.1 %; Mean Corpuscular HGB Conc 33.9 g/dL (31.6-35.5); Mean Corpuscular Hemoglobin 32.3 pg (28.0-33.3); Mean Corpuscular Volume 95.4 fL (83.0-100.0); Mean Platelet Volume 12.4 fL (9.4-12.4); Monocytes # 0.6 K/mcL (0.0-1.3); Monocytes % 14.2 %; Red Blood Count 2.63 M/mcL (4.19-5.50); Red Cell Distribution Width 15.6 % (11.5-14.5)
[2018-10-03] MEDS: Pantoprazole 40 MG VIAL IVP SCH (05:13)
[2018-10-03 05:14] LABS: Alanine Aminotransferase 44 Units/L (7-52); Albumin 2.5 g/dL (3.5-5.7); Albumin/Globulin Ratio 1.3 (1.1-2.2); Alkaline Phosphatase 60 Units/L (34-104); Aspartate Amino Transferase 108 Units/L (13-39); BUN/Creatinine Ratio 27 (6-26); Bilirubin,Indirect 2.8 mg/dL (0.0-1.2); Bilirubin,Total 6.8 mg/dL (0.3-1.0); Blood Urea Nitrogen 35 mg/dL (6-20); Calcium 7.7 mg/dL (8.6-10.3); Carbon Dioxide 27 mEq/L (23-29); Chloride 100 mEq/L (98-107); Globulin 1.9 g/dL (2.4-3.5); Glucose 137 mg/dL (70-105); Osmolality,Calculated 290 (280-300); Potassium 4.2 mEq/L (3.5-5.1); Sodium 135 mEq/L (136-145); Total Protein 4.4 g/dL (6.4-8.9); eGFR For Non-African Americans > 60 (> 60)
[2018-10-03 05:15] LABS: Neutrophils # 2.1 K/mcL (1.6-8.9); Platelet Count 51 K/mcL (140-400)
[2018-10-03] MEDS ORDERED: cefTRIAXone 2,000 MG in Water for inj. (sterile) 20 ML 20 ML IVP SCH (06:00)
[2018-10-03] MEDS: Octreotide 400 MCG in 0.9 % Sodium Chloride 100 ML IVC SCH (07:15)
[2018-10-03] MEDS: Lactulose Oral Soln 20 GM/30 ML UDC PO SCH (07:50)
[2018-10-03 10:55] LABS: Bilirubin,Urine Moderate (Negative); Blood,Urine Negative (Negative); Color,Urine Orange (Yellow); Glucose,Urine (UA) Normal (Normal); Ketones,Urine Trace mg/dL (Negative); Leukocyte Esterase,Urine Trace (Negative); Nitrite,Urine Negative (Negative); PH,Urine 5.5 pH Units (5.0-8.0); Protein,Urine Negative (Neg-Trace); Specific Gravity,Urine 1.017 (1.010-1.025); Urobilinogen,Urine Normal (Normal)
[2018-10-03 10:58] LABS: Hyaline Casts,Urine None Seen per lpf (None-Few); RBC,Urine 0-3 per hpf (0-3); Squamous Epithelial Cell,Urine Moderate per lpf (None-Few); WBC,Urine 0-3 per hpf (0-3)
[2018-10-03 11:00] LABS: Clarity,Urine Slightly Hazy (Clear)
[2018-10-03 11:07] LABS: Amphetamine Screen,Urine Negative ng/mL (Cutoff=1000); Bacteria,Urine Few per hpf (None-Few); Barbiturate Screen,Urine Negative ng/mL (Cutoff=200); Benzodiazepines Screen,Urine Negative ng/mL (Cutoff=200); Cannabinoid Screen,Urine Negative ng/mL (Cutoff = 50); Cocaine Screen,Urine Negative ng/mL (Cutoff= 300); Opiate Screen,Urine Negative ng/mL (Cutoff=300); Phencyclidine Screen,Urine Negative ng/mL (Cutoff=25)
--- NOTE | 2018-10-03 15:24 | Discharge Summary ---
- NOTES TO OUTPATIENT PROVIDER Notes to Outpatient Provider: PCP in 5 to 7 days. GI out pt November 01 2018 at [facility] Orders not resulted at time of discharge: Pending orders 10/01/18 12:12 Cell Cnt w Dif, Peritoneal Fl [BF] Routine 10/01/18 12:13 Albumin,Body Fluid Routine Total Protein,Peritoneal Fluid [BF] Routine 10/03/18 10:30 Culture,Urine [RM] Stat 10/04/18 04:00 Basic Metabolic Panel AM 0400 CBC [Complete Blood Count] [HEME] AM 0400 Complete Blood Count [HEME] AM 0400 Hepatic Panel AM 0400 10/05/18 04:00 CBC [Complete Blood Count] [HEME] AM 0400 Date of Encounter: 10/03/18 Time of Encounter: 15:22 - Discharge Diagnosis (1) Cirrhosis Priority: Primary Status: Acute Assessment and Plan: Hx of Hep C likely from IVDU. Pt has known decompensated cirrhosis secondary to chronic hepatitis C. Meld 24. Child Boateng class C. Presented with worsening anasarca. Abd US not showing significant ascites and not safe for paracenthesis though noted by CT abdomen and pelvis. Was onn Lasix 60 mg IV BID but Cr bumped so held dose 10/02/18. Will DC on Lasix 40 mg QOD (everyother day) and recommendation continue Aldactone. No evidence of hepatic encephalopathy, continue lactulose and rifaximin. GI evaluated and he is s/p colonoscopy which showed mod to severe hemorrhoids, appreciate recommendations. Qualifiers: Hepatic cirrhosis type: unspecified hepatic cirrhosis Ascites presence: with ascites Qualified Code(s): K74.60 - Unspecified cirrhosis of liver; R18.8 - Other ascites (2) Chronic hepatitis C Priority: Primary Status: Acute Assessment and Plan: Resulting in cirrhosis as above. Follow-up with GI as scheduled. Qualifiers: Hepatic coma status: without hepatic coma Qualified Code(s): B18.2 - Chronic viral hepatitis C (3) Anemia due to GI blood loss Priority: Primary Status: Acute Assessment and Plan: Patient hemoglobin is 9.3 on presentation, baseline appears to be around 12. Having dark red and melanotic stools with occult positive stool. Concern for GI bleed. Hemodynamically stable. No evidence of active variceal bleed. Started on Protonix 40 mg IV push twice a day. Will resume PPI PO after discharge. Seen by GI and s/p endoscopy 10/02/18 which showed moderate to severe hemorrhoids and polyps. (4) COPD (chronic obstructive pulmonary disease) Priority: Primary Status: Acute Assessment and Plan: Stable. No evidence of exacerbation. When necessary bronchodilators. Qualifiers: COPD type: unspecified COPD Qualified Code(s): J44.9 - Chronic obstructive pulmonary disease, unspecified (5) Acute kidney injury Priority: Primary Status: Acute Assessment and Plan: Likely due to diuresis. Held lasix and aldactone dose 10/02/18. Cr down from 1.32 to 1.28. Rec renal panel follow up out pt by PCP. Hospital course: History of present illness: Dr. Flores Mr. Mitchell is a 48 year old male with history of chronic hepatitis C and cirrhosis presents with diffuse swelling. Patient states that he recently saw his last repairer at [facility] and he felt generally unwell and had diffuse swelling. It was recommended that the patient be admitted at [facility] however refused and presented to our emergency department. He states he also follows with pathology laboratory director here and wanted to be closer to home. He reports increased abdominal swelling and lower shortness swelling. He reports mild shortness of breath is at his baseline. He denies fever and chills. He reports noticing dark red blood in his stool. Denies any vomiting or hematemesis. Discharge discussed with: patient - Time Spent with Patient Total time spent providing and/or coordinating discharge services: Time spent: Greater than 30 minutes - Discharge Medications Prescriptions: No Action Omeprazole [PriLOSEC] 40 mg PO BID Bumetanide [Bumex] 2 mg PO BID Lactulose 20 gm PO DAILY Tiotropium [Spiriva] 2 puff IH 0700 Calcipotriene [Dovonex] 60 gm TP BID Albuterol Sulfate [Proair Hfa] 2 puff IH Q4H PRN PRN Reason: Shortness Of Breath Fluticasone/Salmeterol [Advair 250-50 Diskus] 1 puff IH BID traZODone [TraZODone] 50 mg PO HS Spironolactone [Aldactone] 150 mg PO BID Rifaximin [Xifaxan] 550 mg PO BID Propranolol HCl 10 mg PO BID metOLazone [Metolazone] 10 mg PO DAILY Home Medications: Albuterol Sulfate [Proair Hfa] 2 puff IH Q4H PRN 01/16/18 [History] Calcipotriene [Dovonex] 60 gm TP BID 01/16/18 [History] Fluticasone/Salmeterol [Advair 250-50 Diskus] 1 puff IH BID 01/16/18 [History] Tiotropium [Spiriva] 2 puff IH 0700 01/16/18 [History] Omeprazole [PriLOSEC] 40 mg PO BID 06/04/18 [History] Propranolol HCl 10 mg PO BID 08/22/18 [History] Rifaximin [Xifaxan] 550 mg PO BID 08/22/18 [History] Spironolactone [Aldactone] 150 mg PO BID 08/22/18 [History] metOLazone [Metolazone] 10 mg PO DAILY 08/22/18 [History] traZODone [TraZODone] 50 mg PO HS 08/22/18 [History] Bumetanide [Bumex] 2 mg PO BID 10/01/18 [History] Lactulose 20 gm PO DAILY 10/01/18 [History] Furosemide [Lasix] 40 mg PO Q48H 30 Days #15 tab 10/03/18 [Rx] Allergies/Adverse Reactions: Allergy/AdvReac Type Severity Reaction Status Date / Time No Known Allergies Allergy Verified 08/22/18 19:34 Date of admission: 10/01/18 01:52 Primary care physician: Naveed López MD Consults: 10/01/18 01:39 Consult to Gastroenterology [CONS] Stat Consulting Provider: [facility] [place] Reason for Consult: Decompensated cirrhosis, GI bleed Call Completed: No 10/01/18 13:18 Consult to Surgery [CONS] Routine Consulting Provider: [facility] Reason for Consult: acute cholecystitis Call Completed: Yes Discharging clinician: Reena Bang Anticipated date of discharge: 10/03/18 - Constitutional Vitals: Temp Pulse Resp BP Pulse Ox 98.5 F 64 18 96/56 94 10/03/18 10:40 10/03/18 10:40 10/03/18 10:40 10/03/18 10:40 10/03/18 10:40 General appearance: Present: A&O X 3, morbidly obese, no acute distress Exam: General: pleasant, without distress Cardiovascualr: Regular rate and rhythm with no murmur, absent gallops or rubs, absent pedal edema, radial pulses 2 out of 4 Lungs: Clear to auscultation bilaterally, not in respiratory distress Abdomen: Soft non-tender, distended positive bowel sounds, absent hepatomegaly Skin: warm and dry, absent rash, absent open wounds and nodules MSK: absent clubbing, cyanosis, joints without swelling Neuro: Cranial nerves II through XII intact, UE and LE sensation equal bilaterally, UE and LEstrength 5/5, alert oriented 3, Psych: good insight and judgment - Head Head exam: Present: atraumatic, normocephalic - Eye Eye exam: Present: PERRL, conjuntiva pink, sclera anicteric Pupils: Present: PERRL - Neck Neck exam general surgery: Present: supple, trachea midline. Absent: lymphadenopathy - Respiratory Respiratory exam: Present: CTAB. Absent: accessory muscle use, rales, rhonchi, wheezes - Cardiovascular Cardiovascular exam: Present: RRR, +S1, +S2. Absent: diastolic murmur, gallop, rubs, systolic murmur - GI/Abdominal GI/Abdominal exam: Present: normal bowel sounds, soft, no peritoneal signs. Absent: distended, tenderness - Extremities Exam Extremities exam: Present: pedal edema, warm, radial pulses palpable and symmetrical. Absent: calf tenderness, cyanotic Additional comments: Abdomen rotund - Neurological Exam Neurological exam: Present: CN II-XII intact, oriented X3, no focal deficits. Absent: pronater drift, facial droop, speech deficit - Skin Skin exam: Present: dry, intact - Patient Status Disposition: Home, Self-Care Condition: Fair Overall status at discharge: patient is back to baseline - Discharge Instructions Follow Up With: Naveed López MD [Primary Care Provider] - - Diet and Activity Activity: increase activity as tolerated Diet: low fat, low cholesterol, low salt diet
[2018-10-03 16:27] VITALS: BP 91/52
== END 2018-10-03 17:57 | disposition home or self-care (01) | DRG 254 ==
LOC: 2ANU 20:17 → EMEROOARM 20:17 → OBSVTOIN 10-01 01:52 → 2ANU 10-01 03:20
PROVIDERS: ADMIT Internal Medicine; ATTEND Internal Medicine
PROC: ENDOCCB (2018-10-02 15:30)